=== PATIENT | male | born 2005 | race Caucasian/White ===

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

== ENCOUNTER 2024-12-23 13:02 | Outpatient (OUT) | payer OTHER, SELFPAY ==
--- OUTSIDE RECORDS SUMMARY | 2024-12-23 13:08 | XMS_ITS | Encounter Summary ---
Author Organization [facility] Address [address] [facility] [place] [address] Care Team Providers Care Stock Transfer Clerk Name Role Phone Kristal Calzada Unavailable [phone] Encounter Details Date Type Department Care Team (Late st Contact Info) Description 11/26/2022 Abstract [facility] [place] [facility] [address] [facility] [address] [place] [id number] Jayy Harrison MD [address] [facility] [address] [place] [address] Social History Tobacco Use Types Packs/Day Years Used Date Smoking Tobacco: Never Assessed Sex and Gender Information Value Date Recorded Sex Assigned at Not on file Legal Sex Male 6:50 PM EDT Gender Identity Not on file Sexual Orientation Not on file documented as of this encounter Plan of Treatment Upcoming Encounters Date Type Department Care Team (Late st Contact Info) Description 04/21/2025 10:00 AM EST Office Visit [facility] [place] [facility] [address] [place] [address] [place] [address] Kristal Calzada PA [address] [facility] [address] [place] [address] documented as of this encounter Visit Diagnoses Not on filedocumented in this encounter Care Teams Stock Transfer Clerk Relationship Specialty Start Date End Date Kristal Calzada PA [address] [facility] [address] [place] [address] PCP - Medical [place] [employer] 05/06/21 05/05/99 documented as of this encounter
--- OUTSIDE RECORDS SUMMARY | 2024-12-23 13:08 | XMS_ITS | Encounter Summary ---
Author Organization [facility] Address [address] [place] [address] Care Team Providers Care Setter Helper Name Role Phone Kristal Calzada PA Unavailable [phone] Encounter Details Date Type Department Care Team (Late st Contact Info) Description 08/20/2023 Abstract [facility] [place] [facility] [address] [place] [address] [place] [address] Unallocated, Noms Provider, [address] [place] [address] Social History Tobacco Use Types Packs/Day Years Used Date Smoking Tobacco: Never Smokeless Tobacco: Never Alcohol Use Standard Drinks/Week Comments Not Currently 0 (1 standard drink = 0.6 oz pure alcohol) Caffeine intake: drinks a soda/pop weekly Humiliation, Afraid, Rape, and Kick questionnair e Answer Date Recorded Within the last year, have y ou been afraid of your partner or ex-partner? No 04/01/2023 Within the last year, have y ou been humiliated or emotionally abused in other ways by your partner or ex-partner? No Within the last year, have y ou been kicked, hit, slapped, or otherwise physically hurt by your partner or ex-partner? No 04/01/2023 Within the last year, have y ou been raped or forced to have any kind of sexual activity by your partner or ex-partner? No 04/01/2023 Social Connection and Isolation Panel [NHANES] A nswer Date Recorded In a typical week, how many times do you talk on the phone with family, friends, or neighbors? Once a week 04/01/2023 How often do you get together with friends or re latives? Once a week 04/01/2023 How often do you attend mu-ism or confucianist serv ices? Never 04/01/2023 Do you belong to any clubs o r organizations such as mu-ism groups, unions, fraternal or athletic groups, or school groups? No 04/01/2023 How often do you attend meet ings of the clubs or organizations you belong to? Never 04/01/2023 Are you , , di vorced, , never , or living with a partner? Never 04/01/2023 AUDIT-C Answer Date Recorded Q1: How often do you have a drink containing alc ohol? 2-4 times a month 04/01/2023 Q2: How many drinks containi ng alcohol do you have on a typical day when you are drinking? 7 to 9 04/01/2023 Q3: How often do you have si x or more drinks on one occasion? Less than monthly 04/01/2023 Overall Financial Resource Strain (CARDIA) Answe r Date Recorded How hard is it for you to pa y for the very basics like food, housing, medical care, and heating? Not hard at all 04/01/2023 [facility] - Occupational Stress Questionnaire Answer Date Recorded Do you feel stress - tense, restless, nervous, or anxious, or unable to sleep at night because your mind is troubled all the time - these days? Rather much 04/01/2023 Exercise Vital Sign Answer Date Recorde d On average, how many days pe r week do you engage in moderate to strenuous exercise (like a brisk walk)? 3 days 04/01/2023 On average, how many minutes do you engage in exercise at this level? 60 min 04/01/2023 Hunger Vital Sign Answer Date Recorded Within the past 12 months, y ou worried that your food would run out before you got the money to buy more. Never true 04/01/20 23 Within the past 12 months, t he food you bought just didn't last and you didn't have money to get more. Never true 04/01/2023 PRAPARE - Transportation Answer Date Re corded In the past 12 months, has l ack of transportation kept you from medical appointments or from getting medications? No 03/07 In the past 12 months, has l ack of transportation kept you from meetings, work, or from getting things needed for daily living? No 04/01/2023 Housing Stability Vital Sign Answer Jony e Recorded In the last 12 months, was t here a time when you were not able to pay the mortgage or rent on time? No 04/01/2023 In the last 12 months, how many places have you lived? 1 04/01/2023 In the last 12 months, was t here a time when you did not have a steady place to sleep or slept in a [place] [facility] facility (including now)? No 04/01/2023 Sex and Gender Information Value Date Recorded Sex Assigned at Not on file Legal Sex Male 6:50 PM EDT Gender Identity Not on file Sexual Orientation Not on file documented as of this encounter Plan of Treatment Upcoming Encounters Date Type Department Care Team (Late st Contact Info) Description 04/21/2025 10:00 AM EST Office Visit [facility] [place] Butcher [address] [facility] [address] [place] [address] Kristal Calzada PA [address] [facility] [address] [place] [address] documented as of this encounter Visit Diagnoses Not on filedocumented in this encounter Care Teams Setter Helper Relationship Specialty Start Date End Date Kristal Calzada PA [address] [facility] 110 [place] [address] PCP - Medical [place] [employer] 05/06/21 05/05/99 documented as of this encounter
--- OUTSIDE RECORDS SUMMARY | 2024-12-23 13:08 | XMS_ITS | Clinical Summary ---
Author Organization [facility] Address [address] [place] [address] Care Team Providers Care Turning Lathe Tender Name Role Phone Kristal Calzada PA Unavailable [phone] Allergies Active Allergy Reactions Criticality Noted Date Comments Sulfamethoxazole-Tri methoprim Fever,Hives,Itching,Ra sh,Runny nose Low 04/02/2023 Other Reaction(s): Unknown Medications cloNIDine ER (Kapvay) 0.1 MG tablet sustained-release 12 hourIndications:At tention deficit hyperactivity disorder (ADHD), combined type TAKE 1 TABLET BY MOUTH IN THE MORNING AND 1 TABLET AT NOON. 180 tablet 2 5 Active Active Problems Problem Noted Date Diagnosed Date ADPKD (autosomal dominant polycystic kidney dise ase) 10/22/2023 Attention deficit hyperactiv ity disorder (ADHD), combined type 07/25/2023 Acne 04/02/2023 Class 1 obesity due to exces s calories without serious comorbidity with body mass index (BMI) of 34.0 to 34.9 in adult 04/02/2023 Epidermoid cyst 04/02/2023 Family history of polycystic kidney disease 03/07 Family history of sudden cardiac Postconcussive syndrome 04/02/2023 Primary insomnia 04/02/2023 Resolved Problems Problem Noted Date Diagnosed Date Resolved Date Class 2 severe obesity due t o excess calories with serious comorbidity and body mass index (BMI) of 35.0 to 35.9 in adult 07/22/2024 5 BMI 34.0-34.9,adult 10/22/2023 04/22/20 24 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 10/22/2023 10/26/2024 Allergic reaction to drug 08/13/2023 Polycystic kidney disease 04/02/2023 Abnormal ultrasound 04/02/2023 10/27/19 25 Muscle cramps 04/02/2023 10/26/2024 Rib pain on left side 04/02/20232023 Sinusitis 04/02/2023 05/08/2023 Vestibular dysfunction 04/02/202308/12 Well child check 04/02/2023 08/13/2023 Encounters Date Type Department Care Team Description 11/17/2024 [facility] [place] [facility] [address] [facility] [address] [place] [id number] Kristal Calzada PA Attention deficit hyperactivity disorder (ADHD), combined type 10/26/2024 10:00 AM EDT Office Visit [facility] [place] [facility] [address] [facility] [address] [place] [address] Kristal Calzada PA Wellness examination (Primary Dx); Class 1 obesity due to excess calories without serious comorbidity with body mass index (BMI) of 34.0 to 34.9 in adult; ADPKD (autosomal dominant polycystic kidney disease); Attention deficit hyperactivity disorder (ADHD), combined type ; Acne vulgaris; Epidermoid cyst; Family history of polycystic kidney disease; Family history of sudden cardiac ; Primary insomnia; Postconcussive syndrome; Elevated BP without diagnosis of hypertension 10/26/2024 Bamboo flowsheet [facility] [place] [facility] [address] [facility] [address] [place] [address] Kristal Calzada PA 10/26/2024 Travel 10/23/2024 Travel 10/08/2024 Clinisync Result Encounter [facility] External Department Unsolicited Provider, Generic External Data 09/29/2024 Refill [facility] [place] [facility] [address] [facility] [address] [place] [id number] Kristal Calzada, PA Attention deficit hyperactivity disorder (ADHD), combined type from Last 3 Months Immunizations Immunization Administration Dates Next Due DTP 05/24/2004 DTaP 03/10/2008,05/24/2004,2003 DTaP / Hep B / IPV 2003 DTaP, Unspecified 2003,2003 Hep A, ped/adol, 2 dose 05/31/2017,11/22/2016 Hep B, Adolescent or Pediatric 2003,2002 Hep B, adult 2003 HiB, unspecified 05/24/2004,2003, 4 Hib (PRP-T) 2003 IPV 03/10/2008 Influenza Whole 02/21/2005 Influenza, live, intranasal 02/18/2013,1 ,04/27/2011,03/10 Influenza, seasonal, injectable 03/05/2007,02/22 Influenza, seasonal, injecta ble, preservative free 01/29/2024,03/12/2014,02/22/2010 MMR 03/10/2008,02/23/2004 Meningococcal ACWY, unspecified 11/22/2015 Meningococcal MCV4O 11/28/2020 Meningococcal MCV4P 11/22/2015 Novel Pbamcfbin-[id number], nasal 04/08/2009 Pneumococcal Conjugate PCV 13 05/24/2004 Pneumococcal Conjugate PCV 7 2003,08/25/19 04 Pneumococcal, Unspecified 05/24/2004 Polio, Unspecified 03/10/2008, 4,2003,05/07 TD (adult), 2 Lf tetanus tox oid, preservative free, adsorbed 11/22/2015 Tdap 11/22/2015, 8,05/24/2004,08/24,2003,2003 Varicella 03/10/2008,02/23/2004 Family History Medical History Relation Name Comments Hyperlipidemia Father Heart disease Maternal Grandfather Heart disease Mother Kidney disease Mother Polycystic kidney disease Mother Hyperlipidemia Other 1 Hypertension Other 1 Kidney disease Other 1 Polycystic kidney disease Other 2 Cancer Paternal Grandfather Cancer Paternal Grandmother Relation Name Status Comments Father Alive Maternal Grandfather Maternal Grandmother Alive Mother Alive Other 1 Family hx Other 2 Alive Uncles Paternal Grandfather Paternal Grandmother Social History Tobacco Use Types Packs/Day Years Used Date Smoking Tobacco: Never Smokeless Tobacco: Never Tobacco Cessation:Counseling Given: Not Answered Alcohol Use Standard Drinks/Week Comments Yes 7 (1 standard drink = 0.6 oz pure alcohol) Caffeine intake: drinks a soda/pop weekly B1300 Health Literacy Answer Date Recor ded How often do you need to hav e someone help you when you read instructions, pamphlets, or other written material from your doctor or pharmacy? Never 10/23/2024 Humiliation, Afraid, Rape, and Kick questionnair e Answer Date Recorded Within the last year, have y ou been afraid of your partner or ex-partner? No 10/23/2024 Within the last year, have y ou been humiliated or emotionally abused in other ways by your partner or ex-partner? No Within the last year, have y ou been kicked, hit, slapped, or otherwise physically hurt by your partner or ex-partner? No 10/23/2024 Within the last year, have y ou been raped or forced to have any kind of sexual activity by your partner or ex-partner? No 10/23/2024 Social Connection and Isolat ion Panel [NHANES] Answer Date Recorded In a typical week, how many times do you talk on the phone with family, friends, or neighbors? More than three times a week 10/23/2024 How often do you get togethe r with friends or relatives? Once a week 10/23/2024 How often do you attend [facility] or oriental orthodox services? More than 4 times per year 10/23/2024 Do you belong to any clubs o r organizations such as zoroastrian groups, unions, fraternal or athletic groups, or school groups? No 10/23/2024 How often do you attend meet ings of the clubs or organizations you belong to? Never 10/23/2024 Are you , , di vorced, , never , or living with a partner? Never 10/23/2024 AUDIT-C Answer Date Recorded Q1: How often do you have a drink containing alc ohol? Monthly or less 10/23/2024 Q2: How many drinks containi ng alcohol do you have on a typical day when you are drinking? 7 to 9 10/23/2024 Q3: How often do you have si x or more drinks on one occasion? Less than monthly 10/23/2024 Overall Financial Resource Strain (CARDIA) Answe r Date Recorded How hard is it for you to pa y for the very basics like food, housing, medical care, and heating? Not very hard 10/23/2024 PHQ-2 Answer Date Recorded Patient Health Questionnaire-2 Score 0 07/22/2024 [facility] - Occupational Stress Questionnaire Answer Date Recorded Do you feel stress - tense, restless, nervous, or anxious, or unable to sleep at night because your mind is troubled all the time - these days? Not at all 10/23/2024 Exercise Vital Sign Answer Date Recorde d On average, how many days pe r week do you engage in moderate to strenuous exercise (like a brisk walk)? 4 days 10/23/2024 On average, how many minutes do you engage in exercise at this level? 90 min 10/23/2024 Hunger Vital Sign Answer Date Recorded Within the past 12 months, y ou worried that your food would run out before you got the money to buy more. Never true 10/24/19 Within the past 12 months, t he food you bought just didn't last and you didn't have money to get more. Never true 10/23/2024 PRAPARE - Transportation Answer Date Re corded In the past 12 months, has l ack of transportation kept you from medical appointments or from getting medications? No 10/05 In the past 12 months, has l ack of transportation kept you from meetings, work, or from getting things needed for daily living? No 10/23/2024 Housing Stability Vital Sign Answer Jony e [...] place to sleep or slept in a retirement (including now)? No 04/01/2023 Housing Stability Vital Sign Answer Jony e Recorded In the last 12 months, was t here a time when you were not able to pay the mortgage or rent on time? No 10/23/2024 In the past 12 months, how m any times have you moved where you were living? 0 10/23/2024 At [facility] time in the [facility] were you homeless or living in a retirement (including now)? No 10/23/2024 Sex and Gender Information Value Date Recorded Sex Assigned at Not on file Legal Sex Male 6:50 PM EDT Gender Identity Not on file Sexual Orientation Not on file Last Filed Vital Signs Vital Sign Reading Time Taken Comments Blood Pressure 136/88 10/26/2024 9:44 AM EDT Pulse 60 10/26/2024 9:44 AM EDT Temperature 37.4 C (99.4 F) 10/22/2023 10:03 AM EDT Respiratory Rate 16 07/22/2024 10:04 AM EDT Oxygen Saturation 98% 10/26/2024 9:44 AM EDT Inhaled Oxygen Concentration - - Weight 114 kg (252 lb) 10/26/2024 9:44 AM EDT Height 182.9 cm (6') 10/26/2024 9:44 AM EDT Body Mass Index 34.18 10/26/2024 9:44 AM EDT Plan of Treatment Upcoming Encounters Date Type Department Care Team (Late st Contact Info) Description 04/21/2025 10:00 AM EST Office Visit [facility] [place] [facility] [address] [facility] [address] [place] [address] Kristal Calzada PA [address] [facility] 110 [place] [address] Health Maintenance Due Date Last Done Comments Influenza Vaccine (#1) 2025 4, 03/12/2014, 02/18/2013, Additional history exists Procedures Procedure Name Priority Date/Time Associated Diagnosis Comments QUANTIFERON-TB GOLD PLUS Routine 10/08/2024 3:10 PM EDT MEASLES/MUMPS/RUBEL LA IMMUNITY Routine 10/08/2024 3:10 PM EDT VARICELLA-ZOSTER V AB, IGG Routine 10/08/2024 3:10 PM EDT HEPATITIS B SURF AB QUANT Routine 10/08/2024 3:10 PM EDT from Last 3 Months Results * VARICELLA-ZOSTER V AB, IGG (10/08/2024 3:10 PM EDT) Pathologist [facility] VARICELLA-ZOST ER V AB, IGG Non Reactive Non Reactive TB Comment: Please note reference interval change A Reactive result is considered evidence of immunity to VZV. Reactive indicates that VZV IgG was detected consistent with previous infection and/or vaccination. A Non Reactive result indicates that VZV IgG was not detected suggesting that immunity has not been acquired. Performed at: [facility] [id number] Sales Service Rep: Anibal Munoz PhD, Phone: [phone] 10/08/2024 3:10 PM EDT 10/08/2024 3:13 PM EDT Narrative [facility] - 10/09/2024 6:07 AM EDT Donna Melgoza NP LAB BLOOD ORDERABLES Final Re sult [facility] * QUANTIFERON-TB GOLD PLUS (10/08/2024 3:10 PM EDT) Pathologist [facility] QUANTIFERON INCUBATION . TBH Comment: Incubation performed. Reference Range: . QUANTIFERON-TB GOLD PLUS Negative Negative TB Comment: No response to M tuberculosis antigens detected. Infection with M tuberculosis is unlikely, but high risk individuals should be considered for additional testing (ATS/IDSA/CDC Clinical Practice Guidelines, 2017). The reference range is an Antigen minus Nil result of <0.35 IU/mL. Chemiluminescence immunoassay methodology Performed at: [facility] [id number] Sales Service Rep: Anibal Munoz PhD, Phone: [phone] QUANTIFERON CRITERIA Comment . TBH Comment: QuantiFERON-TB Gold Plus is a qualitative indirect test for M tuberculosis infection (including disease) and is intended for use in conjunction with risk assessment, radiography, and other medical and diagnostic evaluations. The QuantiFERON-TB Gold Plus result is determined by subtracting the Nil value from either TB antigen (Ag) value. The Mitogen tube serves as a control for the test. QUANTIFERON TB1 AG VALUE 0.04 . IU/mL TBH QUANTIFERON TB2 AG VALUE 0.04 . IU/mL TBH QUANTIFERON NIL VALUE 0.03 . IU/mL TBH QUANTIFERON MITOGEN VALUE >10.00 . IU/mL TB 10/08/2024 3:10 PM EDT 10/08/2024 3:13 PM EDT Narrative [facility] - 10/10/2024 7:07 AM EDT Donna Melgoza PRIMARY CARE NURSE PRACTITIONER LAB BLOOD ORDERABLES Final Re sult [facility] * (ABNORMAL) MEASLES/MUMPS/RUBELLA IMMUNITY (10/08/2024 3:10 PM EDT) [facility] RUBELLA ANTIBODIES, IGG 1.61 Immune >0.99 index TBH Comment: Non-immune <0.90 Equivocal 0.90 - 0.99 Immune >0.99 MEASLES ANTIBODIES, IGG <13.5(A) Immune >16.4 AU/mL TB Comment: Negative <13.5 Equivocal 13.5 - 16.4 Positive >16.4 Presence of antibodies to Rubeola is presumptive evidence of immunity except when acute infection is suspected. MUMPS ABS, IGG 87.0 Immune >10.9 AU/mL TB Comment: Negative <9.0 Equivocal 9.0 - 10.9 Positive >10.9 A positive result generally indicates past exposure to Mumps virus or previous vaccination. Performed at: [address] [id number] Sales Service Rep: Anibal Munoz PhD, Phone: [phone] 10/08/2024 3:10 PM EDT 10/08/2024 3:13 PM EDT Narrative [facility] - 10/09/2024 6:07 AM EDT us Donna Melgoza PRIMARY CARE NURSE PRACTITIONER LAB BLOOD ORDERABLES Final Re sult [facility] * HEPATITIS B SURF AB QUANT (10/08/2024 3:10 PM EDT) HEPATITIS B SURF AB QUANT 19.0 Immunity>10 mIU/mL TBH Comment: Status of Immunity Anti-HBs Level Inconsistent with Immunity 0.0 - 10.0 Consistent with Immunity >10.0 10/08/2024 3:10 PM EDT 10/08/2024 3:13 PM EDT [facility] - 10/09/2024 6:07 AM EDT Donna Melgoza PRIMARY CARE NURSE PRACTITIONER LAB BLOOD ORDERABLES Final Re sult Performing Organization Address City/[facility]/ZIP Co de Phone Number [facility] from Last 3 Months Insurance [employer] Care Teams Turning Lathe Tender Relationship Specialty Start Date End Date Kristal Calzada PA [address] [facility] [address] [place] [address] PCP - Medical [place] [employer] 05/06/21 05/05/99
--- OUTSIDE RECORDS SUMMARY | 2024-12-23 13:08 | XMS_ITS | Encounter Summary ---
Author Organization [facility] Address [address] [facility] [place] [address] Care Team Providers Care Social Welfare Research Worker Name Role Phone Kristal Calzada Unavailable [phone] Encounter Details Date Type Department Care Team (Late st Contact Info) Description 05/15/2023 Abstract [facility] [place] [facility] [address] [place] [address] [place] [address] Kristal Calzada PA [address] [place] [address] [place] [address] Social History Tobacco Use Types Packs/Day Years [...] week 04/01/2023 How often do you attend hoahaoism or nondenominational serv ices? Never 04/01/2023 Do you belong to any clubs o r organizations such as hoahaoism groups, unions, fraternal or athletic groups, or [...] and heating? Not hard at all 04/01/2023 [facility] [place] [facility] - Occupational Stress [...] place to sleep or slept in a fci (including now)? No 04/01/2023 Sex and Gender [...] Visit [facility] [place] Butcher [address] [facility] [address] [place] [address] Kristal Calzada PA [address] [facility] [address] [place] [address] documented as of this encounter Visit Diagnoses Not on filedocumented in this encounter Care Teams Social Welfare Research Worker Relationship Specialty Start Date End Date Kristal Calzada PA [address] [facility] [address] [place] [address] PCP - Medical [place] [employer] 05/06/21 05/05/99 documented as of this encounter
--- OUTSIDE RECORDS SUMMARY | 2024-12-23 13:08 | XMS_ITS | Encounter Summary ---
Author Organization [facility] Address [address] [facility] [place] [address] Care Team Providers Care Job Counselor Name Role Phone Kristal Calzada PA Unavailable [phone] Encounter Details Date Type Department Care Team (Late st Contact Info) Description 08/20/2023 Abstract [facility] [place] [facility] [address] [place] [address] [place] [address] Unallocated, Noms Provider, [address] [place] [address] Social History Tobacco Use Types Packs/Day Years [...] week 04/01/2023 How often do you attend presybeterian or gnosticist serv ices? Never 04/01/2023 Do you belong to any clubs o r organizations such as presybeterian groups, unions, fraternal or athletic groups, or [...] and heating? Not hard at all 04/01/2023 [facility] - Occupational Stress [...] place to sleep or slept in a halfway (including now)? No 04/01/2023 Sex and Gender [...] Visit [facility] [place] Butcher [address] [facility] [address] [place] [address] Kristal Calzada PA [address] [facility] [address] [place] [address] documented as of this encounter Visit Diagnoses Not on filedocumented in this encounter Care Teams Job Counselor Relationship Specialty Start Date End Date Kristal Calzada PA [address] [facility] [address] [place] [address] PCP - Medical [place] [employer] 05/06/21 05/05/99 documented as of this encounter
--- OUTSIDE RECORDS SUMMARY | 2024-12-23 13:08 | XMS_ITS | Encounter Summary ---
Author Organization [facility] Address [address] [place] [address] Care Team Providers Care Tamale Maker Name Role Phone Kristal Calzada PA Unavailable [phone] Encounter Details Date Type Department Care Team (Late st Contact Info) Description 12/11/2023 Abstract [facility] [address] [place] [address] [place] [address] Unallocated, [facility] Provider, [address] [place] [address] Social History Tobacco Use Types Packs/Day Years [...] week 04/01/2023 How often do you attend orthodox or temple serv ices? Never 04/01/2023 Do you belong to any clubs o r organizations such as orthodox groups, unions, fraternal or athletic groups, or [...] and heating? Not hard at all 04/01/2023 [facility] - Occupational [...] Visit [facility] [place] [facility] [address] [facility] [address] [place] [address] Kristal Calzada PA [address] [facility] [address] [place] [address] documented as of this encounter Visit Diagnoses Not on filedocumented in this encounter Care Teams Tamale Maker Relationship Specialty Start Date End Date Kristal Calzada PA [address] [facility] [address] [place] [address] PCP - Medical [place] [employer] 05/06/21 05/05/99 documented as of this encounter
[2024-12-23 13:44] LABS: Protein Creatinine Ratio Urine 0.05; Total Protein Urine Random 16.0 mg/dL (<=11.9)
[2024-12-23 13:48] LABS: Albumin Level 4.2 g/dL (3.4-5.0); Anion Gap 9.7; Blood Urea Nitrogen 20.0 mg/dL (7.0-18.0); Calcium 9.2 mg/dL (8.5-10.1); Carbon Dioxide 30.3 mmol/L (21.0-32.0); Chloride 102 mmol/L (98-107); Estimated GFR (African America >60 (>=60 mL/min/1.73m^2); Estimated GFR (Non-African Ame >60 (>=60 mL/min/1.73m^2); Glucose 84 mg/dL (74-106); Potassium 4.0 mmol/L (3.5-5.1); Sodium 138 mmol/L (136-145)
[2024-12-23 14:27] LABS: Hematocrit 48.5 % (42.0-54.0); Hemoglobin 17.3 g/dL (14.0-18.0); Mean Corpuscular HGB Conc 35.7 g/dL (29.9-35.2); Mean Corpuscular Hemoglobin 31.6 pg (25.9-34.0); Mean Corpuscular Volume 88.5 fL (80.0-94.0); Platelet Count 293 10^3/uL (150-450); Red Blood Count 5.48 10^6/uL (4.70-6.10); White Blood Count 9.4 10^3/uL (4.0-11.0)
[2024-12-23 14:32] LABS: Glucose Urine UA NEGATIVE (NEGATIVE)
[2024-12-23 14:42] LABS: Cast Seen? NONE SEEN #/LPF (NONE SEEN); Crystals Seen? None Seen #/HPF (None Seen)
== END 2024-12-23 13:03 | disposition home or self-care (01) ==
LOC: LAB 13:05
PROVIDERS: PCP Family Medicine; Visit Provider Internal Medicine
DX: F90.9 Attention-deficit hyperactivity disorder, unspecified type (principal); Q61.2 Polycystic kidney, adult type
CPT/HCPCS: 36415; 80069; 81001; 82570; 84156; 85027

== ENCOUNTER 2025-03-16 11:46 | Outpatient (OUT) | payer OTHER, SELFPAY ==
--- OUTSIDE RECORDS SUMMARY | 2025-03-16 11:48 | XMS_ITS | Clinical Summary ---
Author Organization [facility] Address [address] [place] [address] Care Team Providers Care Salesforce Administrator Name Role Phone Kristal Calzada PA Unavailable [phone] Allergies Active AllergyReactionsCriticalityNoted DateComments Sulfamethoxazole-TrimethoprimFever,Hives,Itching,Rash,Runny igvrKqh6504/02/2023 Other Reaction(s): Unknown Medications MedicationSigDispense QuantityRefillsLast FilledStart DateEnd DateStatus cloNIDine ER (Kapvay) 0.1 MG tablet sustained-release 12 hour Indications:Attention deficit hyperactivity disorder (ADHD), combined typeTAKE 1 TABLET BY MOUTH IN THE MORNING AND 1 TABLET AT NOON. 180 tablet 5Active Active Problems ProblemNoted DateDiagnosed DateADPKD (autosomal dominant polycystic kidney disease)4Attention deficit hyperactivity disorder (ADHD), combined type 1499Rmuj48/28/2023Class 1 obesity due to excess calories without serious comorbidity with body mass index (BMI) of 34.0 to 34.9 in adult04/02/2023 Epidermoid cyst04/02/2023Family history of polycystic kidney jnsktht5304/02/2023 Family history of sudden cardiac death3Postconcussive syndrome 3Primary ywdrbdqd21/28/2023 Resolved Problems ProblemNoted DateDiagnosed DateResolved DateClass 2 severe obesity due to excess calories with serious comorbidity and body mass index (BMI) of35.0 to 35.9 in adult07/22//5BMI 34.0-34.9,adult/Neoplasm of unspecified behavior of other specified sites/llergic reaction to drugolycystic kidney vxhfgfe6004/02/2023 10/26/2024bnormal obwyioeapu38/28/202306/Muscle urqrls0906/02/2022 10/26/2024Rib pain on left side/01/20244938Bgovjspau62/28/202301/07/2023 Vestibular gazfcvqamsm40/28/202304/01/2024Well child check/01/2024 Encounters DateTypeDepartmentCare SkqzPdpjljjxjow02/11/2025bstract [facility] [address] [place] [address] Unallocated, Noms ProviderMD 03/03/2025bstract [facility] [address] [facility] [address] [place] [phone] Kristal Calzada PA 01/05/2025bstract [facility] [address] [facility] [address] [place] [address] Unallocated, Noms ProviderMD 12/23/2024linisync Result Encounter [facility] External Department Unsolicited Provider, Generic External Data from Last 3 Months Immunizations ImmunizationAdministration DatesNext AvzPGO9905/24/2004DTaP105/10/2007,05/24/2004, 2003DTaP / Hep B / IPV2003DTaP, Kvzsywzgqms77/18/2004,2003Hep A, ped/adol, 2 dose05/31/2017,11/22/2016Hep B, Adolescent or Vhcvmtuot03/02/2004 ,2003Hep B, adult2003HiB, yahxnmkgwui62/19/2005,2003, 2003Hib (PRP-T)2003IPV105/10/2007Influenza Whole02/21/2005Influenza, live, sstbqztyoi34/16/2013,03/04/2012,04/27/2011,03/10/2008Influenza, seasonal, fejpbdyxkd82/31/2007,02/23/2004Influenza, seasonal, injectable, preservative free01/29/2024,03/12/2014,02/22/2010MMR105/10/2007,02/23/2004Meningococcal ACWY, bgykmehbyzp75/19/2016Meningococcal TFX9E0111/28/2020Meningococcal UDG2A7611/22/2015 Novel Xtaxppviz-F1S7-21, nasal04/08/2009Pneumococcal Conjugate PCV 13005/24/2004 Pneumococcal Conjugate PCV 7011/24/2003,2003Pneumococcal, Unspecified 05/24/2004Polio, Ystmriauntn14/05/2008,2003,2003,2003TD (adult), 2 Lf tetanus toxoid, preservative free, sgegbwkg13/19/2016Tdap 11/22/2015,03/10/2008,05/24/2004,2003,2003,2003Varicella 03/10/2008,02/23/2004 Family History Medical HistoryRelationNameCommentsHyperlipidemiaFatherHeart diseaseMaternal GrandfatherHeart diseaseMotherKidney diseaseMotherPolycystic kidney disease MotherHyperlipidemiaOther 1HypertensionOther 1Kidney diseaseOther 1Polycystic kidney diseaseOther 2CancerPaternal GrandfatherCancerPaternal Grandmother RelationNameStatusCommentsFatherAliveMaternal GrandfatherDeceasedMaternal GrandmotherAliveMotherAliveOther 1Family hxOther 2AliveUnclesPaternal GrandfatherDeceasedPaternal GrandmotherDeceased Social History Tobacco UseTypesPacks/DayYears UsedDateSmoking Tobacco: NeverSmokeless Tobacco: Never Tobacco Cessation:Counseling Given: Not Answered Alcohol UseStandard Drinks/WeekCommentsYes7 (1 standard drink = 0.6 oz pure alcohol)Caffeine intake: drinks a soda/pop njsihiB3671 Health LiteracyAnswerDate RecordedHow often do you need to have someone help you when you read instructions, pamphlets, or other written material from your doctor or pharmacy? Never10/23/2024Humiliation, Afraid, Rape, and Kick questionnaireAnswerDate RecordedWithin the last year, have you been afraid of your partner or ex-partner?No10/23/2024Within the last year, have you been humiliated or emotionally abused in other ways by your partner or ex-partner?No10/23/2024 Within the last year, have you been kicked, hit, slapped, or otherwise physically hurt by your partner or ex-partner?No10/23/2024Within the last year, have you been raped or forced to have any kind of sexual activity by your part ner or ex-partner?No10/23/2024Social Connection and Isolation PanelAnswerDate RecordedIn a typical week, how many times do you talk on the phone with family, friends, or neighbors?More than three times a week10/23/2024How often do you get together with friends or relatives?Once a week10/23/2024How often do you attend cheondoism or yazdanism services?More than 4 times per year10/23/2024Do you belong to any clubs or organizations such as cheondoism groups, unions, fraternal or athletic groups, or school groups?No10/23/2024How often do you attend meetings of the clubs or organizations you belong to?Never10/23/2024re you , , , , never , or living with a partner?Never adhddgf4110/23/2024UDIT-CAnswerDate RecordedQ1: How often do you have a drink containing alcohol?Monthly or less10/23/2024Q2: How many drinks containing alcohol do you have on a typical day when you are drinking?7 to Q3: How often do you have six or more drinks on one occasion?Less than monthly 10/23/2024Overall Financial Resource Strain (CARDIA)AnswerDate RecordedHow hard is it for you to pay for the very basics like food, housing, medical care, and heating?Not very hard10/23/2024PHQ-2AnswerDate RecordedPatient Health Questionnaire-2 Kczhk614Finmountain view hospital [place] of Occupational Health - Occupational Stress QuestionnaireAnswerDate RecordedDo you feel stress - tense, restless, nervous, or anxious, or unable to sleep at night because yourmind is troubled all the time - these days?Not at all10/23/2024Exercise Vital SignAnswer Date RecordedOn average, how many days per week do you engage in moderate to strenuous exercise (like a brisk walk)?4 days10/23/2024On average, how many minutes do you engage in exercise at this level?90 min10/23/2024Hunger Vital SignAnswerDate RecordedWithin the past 12 months, you worried that your food would run out before you got the money to buymore.Never true10/23/2024Within the past 12 months, the food you bought just didn't last and you didn't have money to get more.Never true10/23/2024PRAPARE - TransportationAnswerDate RecordedIn the past 12 months, has lack of transportation kept you from medical appointments or from getting medications?No10/23/2024In the past 12 months, has lack of transportation kept you from meetings, work, or from getting things needed for daily living?No10/23/2024Housing Stability Vital SignAnswerDate RecordedIn the last 12 months, was there a time when you were not able to pay the mortgage or rent on time?No04/01/2023In the last 12 months, how many places have you lived?In the last 12 months, was there a time when you did not have a steady place to sleep or slept in [place] (including now)?No 04/01/2023Housing Stability Vital SignAnswerDate RecordedIn the last 12 months, was there a time when you were not able to pay the mortgage or rent on time?No 10/23/2024In the past 12 months, how many times have you moved where you were living?t any time in the past 12 months, were you homeless or living in a halfway (including now)?No10/23/2024Sex and Gender InformationValueDate RecordedSex Assigned at BirthNot on fileLegal YjjBtnw1907/18/2022 6:50 PM EDT Gender IdentityNot on fileSexual OrientationNot on file Last Filed Vital Signs Vital SignReadingTime TakenCommentsBlood Llnbnfze500/8806 9:44 AM EDT Roics9363/23/2025 9:44 AM KIVTksmhdekawq17.4 ??C (99.4 ??F)10/22/2023 10:03 AM EDTRespiratory Okat159207/22/2024 10:04 AM EDTOxygen Zcwmwvwkzo71%10/26/2024 9:44 AM EDTInhaled Oxygen Concentration--Byyrno387 kg (252 lb)10/26/2024 9:44 AM EDT Ubnxlf803.9 cm (6')10/26/2024 9:44 AM EDTBody Mass Index34.18010/26/2024 9:44 AM EDT Plan of Treatment DateTypeDepartmentCare Team (Latest Contact Info)Euhjubmlqqg83/17/2025 10:00 AM ESTOffice Visit [facility] [address] [facility] [address] [place] [address] Kristal Calzada PA [address] [facility] [address] [place] [address] Health MaintenanceDue DateLast DoneCommentsCOVID-19 Vaccine ( season) 2025Pneumococcal Vaccine: Pediatrics (0 to 5 Years) and At-Risk Patients (6 to 64 Years)Aged Out05/24/2004, 05/24/2004, 2003, Additional history existsNo longer eligible based on patient's age to complete this topicInfluenza XykoiodWloanvwii55/25/2025, 01/29/2024, 03/12/2014, Additional history exists Procedures Procedure NamePriorityDate/TimeAssociated DiagnosisCommentsHMHP CBC WITH PLATELET NO ETCEBKGIDURWQtzngzi78/20/2025 1:20 PM EDT ALL RENAL FUNCTION HCONGKppgggs71/20/2025 1:20 PM EDT HMHP URINALYSIS, WITH MUTNFHZOZUKWfkbhtt67/20/2025 1:08 PM EDT TBH URINE T PROTEIN CREAT EIIXQOkymtih27/20/2025 1:08 PM EDT from Last 3 Months Results * (ABNORMAL) [facility] CBC WITH PLATELET NO DIFFERENTIAL (12/23/2024 1:20 PM EDT) ComponentValueRef RangeTest MethodAnalysis TimePerformed AtPathologist SignatureTBH WBC9.44.0 - 11.0 10 3/uLTBHTBH RBC5.484.70 - 6.10 10 6/uLTBHTBH HGB17.314.0 - 18.0 g/dLTBHTBH HCT48.542.0 - 54.0 %TBHTBH MCV88.580.0 - 94.0 fL TBHTBH MCH31.625.9 - 34.0 pgTBHTBH MCHC35.7(H)29.9 - 35.2 g/dLTBHTBH RDW11.8 11.0 - 15.0 %TBHTBH CWY897180 - 450 10 3/uLTBHTBH MPV9.3(L)9.5 - 13.5 fLTBH Specimen (Source)Anatomical Location / LateralityCollection Method / Volume Collection TimeReceived Time12/23/2024 1:20 PM EDT12/23/2024 1:22 PM EDT Narrative CLINISYNC - 12/23/2024 2:29 PM EDT Authorizing ProviderResult TypeResult StatusGeneric External Data Provider CLINISYNCFinal ResultPerforming OrganizationAddressCity/State/ZIP CodePhone Number CLINISYNC [facility] * (ABNORMAL) ALL RENAL FUNCTION PANEL (12/23/2024 1:20 PM EDT)ComponentValueRef RangeTest MethodAnalysis TimePerformed AtPathologist MliigxlpuXTIKWS123362 - 145 mmol/LTBHPOTASSIUM4.03.5 - 5.1 mmol/OMHHHSJVSXGN65353 - 107 mmol/LTBH CARBON RYJBKTO13.321.0 - 32.0 mmol/LTBHANION GAP9.4BNOORZBUVG1061 - 106 mg/dL TBHBLOOD UREA XUPAMFJC89.0(H)7.0 - 18.0 mg/dLTBHCREATININE1.250.70 - 1.30 mg/dLTBHTBH EGFR-AF MONTSERRATIAN>60>=60 mL/min/1.73m 2TBHTBH EGFR-NON AF MONTSERRATIAN >60>=60 mL/min/1.73m 2TBHBUN CREATININE RATIO16.8ZEJJUQEIMM9.28.5 - 10.1 mg/dL TBHPHOSPHORUS3.82.6 - 4.7 mg/dLTBHALBUMIN LEVEL4.23.4 - 5.0 g/dLTBHSpecimen (Source)Anatomical Location / LateralityCollection Method / VolumeCollection TimeReceived Time12/23/2024 1:20 PM EDT12/23/2024 1:22 PM EDT Narrative CLINISYKS - 12/23/2024 2:01 PM EDT Authorizing ProviderResult TypeResult StatusGeneric External Data Provider CLINISYNCFinal ResultPerforming OrganizationAddressCity/State/ZIP CodePhone Number RADHA [facility] * (ABNORMAL) TBH URINE T PROTEIN CREAT RATIO (12/23/2024 1:08 PM EDT)Component ValueRef RangeTest MethodAnalysis TimePerformed AtPathologist SignatureTOTAL PROTEIN URINE QXAQNC26.0(H)<=11.9 mg/dLTBHCREATININE URINE AQTSCH593.37(H) 20.00 - 300.00 mg/dLTBHPROTEIN CREATININE RATIO URINE0.05TBHSpecimen (Source) Anatomical Location / LateralityCollection Method / VolumeCollection Time Received Time12/23/2024 1:08 PM EDT12/23/2024 1:22 PM EDT Narrative CLINISYNC - 12/23/2024 2:01 PM EDT Authorizing ProviderResult TypeResult StatusGeneric External Data Provider CLINISYNCFinal ResultPerforming OrganizationAddressty/State/ZIP CodePhone Number RADHA JARQUIN * (ABNORMAL) HMHP URINALYSIS, WITH MICROSCOPIC (12/23/2024 1:08 PM EDT)Component ValueRef RangeTest MethodAnalysis TimePerformed AtPathologist SignatureCOLOR URINEYELLOWYELLOWTBHCLARITY URINECLEARCLEARTBHSPECIFIC GRAVITY URINE>=1.030(A) 1.005 - 1.025TBHPH URINE6.05.0 - 9.0TBHPROTEIN URINENEGATIVENEG/TRACE mg/dLTBH GLUCOSE URINE UANEGATIVENEGATIVE mg/dLTBHBILIRUBIN URINENEGATIVENEGATIVETBH KETONES URINENEGATIVENEGATIVE mg/dLTBHBLOOD URINENEGATIVENEGATIVETBHNITRITE URINENEGATIVENEGATIVETBHUROBILINOGEN URINE0.20.2 - 1.0 EU/dLTBHLEUKOCYTE ESTERASE URINENEGATIVENEGATIVETBHTBH WBC0-2(A)NONE SEEN #/HPFTBHTBH RBCNONE SEEN0 - 2 #/HPFTBHBACTERIA URINETRACE(A)NONE SEEN #/HPFTBHMUCUS URINESMALL(A) NONE SEENTBHSQUAMOUS EPITHELIAL CELL URINEFEW(A)NONE/RARE #/LPFTBHCRYSTALS SEEN?None SeenNone Seen #/HPFTBHCAST SEEN?NONE SEENNONE SEEN #/LPFTBHSpecimen (Source)Anatomical Location / LateralityCollection Method / VolumeCollection TimeReceived Time12/23/2024 1:08 PM EDT12/23/2024 1:22 PM EDT Narrative CLINISYNC - 12/23/2024 2:42 PM EDT Authorizing ProviderResult TypeResult StatusGeneric External Data Provider CLINISYNCFinal ResultPerforming OrganizationAddressCity/State/ZIP CodePhone Number CLINISYNC TBH from Last 3 Months Insurance Care Teams Team MemberRelationshipSpecialtyStart DateEnd Date Hemmer, Kristal M, PA [address] [phone] PCP - Medical [place] [employer]05/06/2211
--- OUTSIDE RECORDS SUMMARY | 2025-03-16 11:48 | XMS_ITS | Encounter Summary ---
Author Organization [facility] Address [address] [facility] [place] [address] Care Team Providers Care Technology Applications Teacher Name Role Phone Kristal Calzada Unavailable [phone] Encounter Details DateTypeDepartmentCare Team (Latest Contact Info)Cgciohpdgtb79/29/2025bstract [facility] [facility] [address] [address] [place] [address] Kristal Calzada PA [address] [place] [address] [place] [address] Social History Tobacco UseTypesPacks/DayYears UsedDateSmoking Tobacco: NeverSmokeless Tobacco: NeverAlcohol UseStandard Drinks/WeekCommentsYes7 (1 standard drink = 0.6 oz pure alcohol)Caffeine intake: drinks a soda/pop sbycphL7157 Health LiteracyAnswerDate RecordedHow often do you need [...] relatives?Once a week10/23/2024How often do you attend evangelical or advent services?More than 4 times per year10/23/2024Do you belong to any clubs or organizations such as evangelical groups, unions, fraBespoke Innovations or athletic groups, or school groups?No10/23/2024How often do you attend meetings of the clubs or organizations you belong to?Never10/23/2024re you , , , , never , or living with a partner?Never ilfqzof7810/23/2024UDIT-CAnswerDate RecordedQ1: How often do you have a [...] and heating?Not very hard10/23/2024PHQ-2AnswerDate RecordedPatient Health Questionnaire-2 Rjaxj428Fin[facility] [place] of Occupational Health - Occupational Stress QuestionnaireAnswerDate [...] steady place to sleep or slept in [place] (including now)?No 04/01/2023Housing Stability Vital SignAnswerDate RecordedIn the last 12 months, was there a time when you were not able to pay the mortgage or rent on time?No 10/23/2024In the past 12 months, how many times have you moved where you were living?t any time in the past 12 months, were you homeless or living in a fdc (including now)?No10/23/2024Sex and Gender InformationValueDate RecordedSex Assigned at BirthNot on fileLegal CjmWwxa6707/18/2022 6:50 PM EDT Gender IdentityNot on fileSexual OrientationNot on filedocumented as of this encounter Plan of Treatment DateTypeDepartmentCare Team (Latest Contact Info)Sihsxwywlei77/17/2025 10:00 AM ESTOffice Visit [facility] [place] [facility] [address] [place] [address] Kristal Calzada PA [address] [place] [address] documented as of this encounter Visit Diagnoses Not on filedocumented in this encounter Care Teams Team MemberRelationshipSpecialtyStart DateEnd Date Kristal Calzada PA [address] [place] [address] PCP - Medical [place] [employer]05/06/2211documented as of this encounter
--- OUTSIDE RECORDS SUMMARY | 2025-03-16 11:48 | XMS_ITS | Encounter Summary ---
Author Organization [facility] Address [address] [place] [address] Care Team Providers Care Learning Strategist Name Role Phone Kristal Calzada PA Unavailable [phone] Encounter Details DateTypeDepartmentCare Team (Latest Contact Info)Iobvqqbhjum39/11/2025bstract [facility] [address] [place] [phone] Unallocated, [facility]oms Provider, [address] [place] [address] Social History Tobacco UseTypesPacks/DayYears UsedDateSmoking Tobacco: NeverSmokeless Tobacco: NeverAlcohol UseStandard Drinks/WeekCommentsYes7 (1 standard drink = 0.6 oz pure alcohol)Caffeine intake: drinks a soda/pop rgcaylA6711 Health LiteracyAnswerDate RecordedHow often do you need [...] relatives?Once a week10/23/2024How often do you attend buddhist or latter day services?More than 4 times per year10/23/2024Do you belong to any clubs or organizations such as buddhist groups, unions, fraMasher or athletic groups, or school groups?No10/23/2024How often do you attend meetings of the clubs or organizations you belong to?Never10/23/2024re you , , , , never , or living with a partner?Never vcixzsw7610/23/2024UDIT-CAnswerDate RecordedQ1: How often do you have a [...] and heating?Not very hard10/23/2024PHQ-2AnswerDate RecordedPatient Health Questionnaire-2 Jztze283Finspanish fork hospital [place] of Occupational Health - Occupational Stress QuestionnaireAnswerDate [...] steady place to sleep or slept in [place] (including now)?No 04/01/2023Housing Stability Vital SignAnswerDate RecordedIn the last 12 months, was there a time when you were not able to pay the mortgage or rent on time?No 10/23/2024In the past 12 months, how many times have you moved where you were living?t any time in the past 12 months, were you homeless or living in a longterm (including now)?No10/23/2024Sex and Gender InformationValueDate RecordedSex Assigned at BirthNot on fileLegal GdjSxie3907/18/2022 6:50 PM EDT Gender IdentityNot on fileSexual OrientationNot on filedocumented as of this encounter Plan of Treatment DateTypeDepartmentCare Team (Latest Contact Info)Ezcfigxyfon46/17/2025 10:00 AM ESTOffice Visit [facility] [place] [facility] [address] [place] [phone] Kristal Calzada PA [address] [place] [address] documented as of this encounter Visit Diagnoses Not on filedocumented in this encounter Care Teams Team MemberRelationshipSpecialtyStart DateEnd Date Kristal Calzada PA [address] [facility] [address] [place] [address] PCP - Medical [place] [employer]05/06/2211documented as of this encounter
[2025-03-16 12:24] LABS: Alanine Aminotransferase 48 U/L (16-63); Albumin Globulin Ratio 1.2; Albumin Level 3.9 g/dL (3.4-5.0); Alkaline Phosphatase 85 U/L (46-116); Anion Gap 13.7; Aspartate Amino Transferase 23 U/L (15-37); Blood Urea Nitrogen 17.0 mg/dL (7.0-18.0); Calcium 9.0 mg/dL (8.5-10.1); Carbon Dioxide 24.9 mmol/L (21.0-32.0); Chloride 104 mmol/L (98-107); Estimated GFR (African America >60 (>=60 mL/min/1.73m^2); Estimated GFR (Non-African Ame >60 (>=60 mL/min/1.73m^2); Globulin 3.3 g/dL; Glucose 98 mg/dL (74-106); Potassium 4.6 mmol/L (3.5-5.1); Sodium 138 mmol/L (136-145); Total Protein 7.2 g/dL (6.4-8.2)
== END 2025-03-16 11:47 | disposition home or self-care (01) ==
LOC: LAB 11:46
PROVIDERS: PCP Family Medicine; Visit Provider Internal Medicine
DX: Q61.2 Polycystic kidney, adult type (principal)
CPT/HCPCS: 36415; 80053

== ENCOUNTER 2025-04-08 12:12 | Outpatient (OUT) | payer OTHER, SELFPAY ==
--- OUTSIDE RECORDS SUMMARY | 2025-04-08 12:16 | XMS_ITS | Clinical Summary ---
Author Organization [facility] Address [address] [place] [address] Care Team Providers Care Airport Duty Manager Name Role Phone Kristal Calzada PA Unavailable [phone] Allergies Active AllergyReactionsCriticalityNoted DateComments Sulfamethoxazole-TrimethoprimFever,Hives,Itching,Rash,Runny cramBbu3804/02/2023 Other Reaction(s): Unknown Medications MedicationSigDispense QuantityRefillsLast FilledStart DateEnd DateStatus cloNIDine ER (Kapvay) 0.1 MG tablet sustained-release 12 hour Indications:Attention deficit hyperactivity disorder (ADHD), combined typeTAKE 1 TABLET BY MOUTH IN THE MORNING AND 1 TABLET AT NOON. 180 tablet 5Active Active Problems ProblemNoted DateDiagnosed DateADPKD (autosomal dominant polycystic kidney disease)4Attention deficit hyperactivity disorder (ADHD), combined type 8926Xpsg14/28/2023Class 1 obesity due to excess calories without serious comorbidity with body mass index (BMI) of 34.0 to 34.9 in adult04/02/2023 Epidermoid cyst04/02/2023Family history of polycystic kidney qsgmpjl9204/02/2023 Family history of sudden cardiac death3Postconcussive syndrome 3Primary ydoszvro03/28/2023 Resolved Problems ProblemNoted DateDiagnosed DateResolved DateClass 2 severe obesity due to excess calories with serious comorbidity and body mass index (BMI) of35.0 to 35.9 in adult07/22//5BMI 34.0-34.9,adult06Neoplasm of unspecified behavior of other specified sites/llergic reaction to drugolycystic kidney uxthfwy9204/02/2023 5Abnormal kgtustngfc12Muscle vzvjwr3706/02/2022 10/26/2024Rib pain on left side/01/20241340Hehmzolgz26/28/202301/07/2023 Vestibular ybvlmdyuldu38Well child check Encounters DateTypeDepartmentCare EhnxAjxttqbqmgf77/11/2025linisync Result Encounter [facility] Unsolicited Provider, Kal External Data 03/16/2025bstract [facility] [address] [place] [phone] Unallocated, [facility] MD Naty 03/03/2025bstract [facility] [address] [facility] [address] [place] [phone] Kristal Calzada PA from Last 3 Months Immunizations ImmunizationAdministration DatesNext LmbZDX0505/24/2004DTaP105/10/2007,05/24/2004, 2003DTaP / Hep B / IPV2003DTaP, Kddgrvrzmsq47/18/2004,2003Hep A, ped/adol, 2 dose05/31/2017,11/22/2016Hep B, Adolescent or Ojzmxdumz42/02/2004 ,2003Hep B, adult2003HiB, /19/2005,2003, 2003Hib (PRP-T)2003IPV105/10/2007Influenza Whole02/21/2005Influenza, live, sinnhggymc66/16/2013,03/04/2012,04/27/2011,03/10/2008Influenza, seasonal, usqknurame89/31/2007,02/23/2004Influenza, seasonal, injectable, preservative free09/,03/12/2014,02/22/2010MMR105/10/2007,02/23/2004Meningococcal ACWY, eefovojghmi76/19/2016Meningococcal XUG4S4411/28/2020Meningococcal AOU9Q9511/22/2015 Novel Ughimvmjj-X5V7-02, nasal04/08/2009Pneumococcal Conjugate PCV 13005/24/2004 Pneumococcal Conjugate PCV 7011/24/2003,2003Pneumococcal, Unspecified 05/24/2004Polio, Asxlxwyxpkq71/05/2008,2003,2003,2003TD (adult), 2 Lf tetanus toxoid, preservative free, piosoxfz08/19/2016Tdap 11/22/2015,03/10/2008,05/24/2004,2003,2003,2003Varicella 03/10/2008,02/23/2004 Family History Medical HistoryRelationNameCommentsHyperlipidemiaFatherHeart diseaseMaternal GrandfatherHeart diseaseMotherKidney diseaseMotherPolycystic kidney disease MotherHyperlipidemiaOther 1HypertensionOther 1Kidney diseaseOther 1Polycystic kidney diseaseOther 2CancerPaternal GrandfatherCancerPaternal Grandmother RelationNameStatusCommentsFatherAliveMaternal GrandfatherDeceasedMaternal GrandmotherAliveMotherAliveOther 1Family hxOther 2AliveUnclesPaternal GrandfatherDeceasedPaternal GrandmotherDeceased Social History Tobacco UseTypesPacks/DayYears UsedDateSmoking Tobacco: NeverSmokeless Tobacco: Never Tobacco Cessation:Counseling Given: Not Answered Alcohol UseStandard Drinks/WeekCommentsYes7 (1 standard drink = 0.6 oz pure alcohol)Caffeine intake: drinks a soda/pop rdvfslN0032 Health LiteracyAnswerDate RecordedHow often do you need [...] relatives?Once a week10/23/2024How often do you attend episcopalian or hindu services?More than 4 times per year10/23/2024Do you belong to any clubs or organizations such as episcopalian groups, unions, fraternal or athletic groups, or school groups?No10/23/2024How often do you attend meetings of the clubs or organizations you belong to?Never10/23/2024re you , , , , never , or living with a partner?Never xklrccg3810/23/2024UDIT-CAnswerDate RecordedQ1: How often do you have a [...] and heating?Not very hard10/23/2024PHQ-2AnswerDate RecordedPatient Health Questionnaire-2 Hkvbu416[facility] Effort of Occupational Health - Occupational Stress QuestionnaireAnswerDate [...] steady place to sleep or [facility] ([facility])?No 04/01/2023Housing Stability Vital SignAnswerDate RecordedIn the last 12 months, was there a time when you were not able to pay the mortgage or rent on time?No 10/23/2024In the past 12 months, how many times have you moved where you were living?t any time in the past 12 months, were you homeless or living in a residential (including now)?No10/23/2024Sex and Gender InformationValueDate RecordedSex Assigned at BirthNot on fileLegal YurDbys2207/18/2022 6:50 PM EDT Gender IdentityNot on fileSexual OrientationNot on file Last Filed Vital Signs Vital SignReadingTime TakenCommentsBlood Zlvyrxdm533/8810/26/2024 9:44 AM EDT Xzzsp6251/23/2025 9:44 AM GZUIkpstfhiokb17.4 ??C (99.4 ??F)10/22/2023 10:03 AM EDTRespiratory Dnpc484307/22/2024 10:04 AM EDTOxygen Idyuformub11%10/26/2024 9:44 AM EDTInhaled Oxygen Concentration--Dpdmyk644 kg (252 lb)10/26/2024 9:44 AM EDT Znbdvg662.9 cm (6')10/26/2024 9:44 AM EDTBody Mass Index34.18010/26/2024 9:44 AM EDT Plan of Treatment DateTypeDepartmentCare Team (Latest Contact Info)Zjaenntgyoe45/17/2025 10:00 AM ESTOffice Visit [facility] [address] [facility] [address] [place] [phone] Kristal Calzada PA [address] [facility] [address] [place] [address] Health MaintenanceDue DateLast DoneCommentsCOVID-19 Vaccine ( season) 2025Pneumococcal Vaccine: Pediatrics (0 to 5 Years) and At-Risk Patients (6 to 64 Years)Aged Out05/24/2004, 05/24/2004, 2003, Additional history existsNo longer eligible based on patient's age to complete this topicInfluenza ZnonijhGpqffiulx59/25/2025, 01/29/2024, 03/12/2014, Additional history exists Procedures Procedure NamePriorityDate/TimeAssociated DiagnosisCommentsCCF CMP (CMP) (FOR REMOTE [facility] USE)Hfqgzsb7303/16/2025 11:56 AM EST from Last 3 Months Results * (ABNORMAL) [facility] CMP (CMP) (FOR REMOTE [facility] USE) (03/16/2025 11:56 AM EST) ComponentValueRef RangeTest MethodAnalysis TimePerformed AtPathologist JasfercxlZADRVN112331 - 145 mmol/LTBHPOTASSIUM4.63.5 - 5.1 mmol/LTBHCHLORIDE 29281 - 107 mmol/LTBHCARBON WCTJRFC05.921.0 - 32.0 mmol/LTBHANION GAP13.7TBH WGXNVMM0665 - 106 mg/dLTBHBLOOD UREA IUMCVXJB86.07.0 - 18.0 mg/dLTBHCREATININE 1.34(H)0.70 - 1.30 mg/dLTBHTBH EGFR-AF MONTSERRATIAN>60>=60 mL/min/1.73m 2TBHTBH EGFR-NON AF [place]ERR[place]IAN>60>=60 mL/min/1.73m 2TBHBUN CREATININE RATIO12.7TBH CALCIUM9.08.5 - 10.1 mg/dLTBHBILIRUBIN TOTAL0.50.2 - 1.0 mg/dLTBHASPARTATE AMINO OFEDQKCOIQN0846 - 37 U/LTBHALANINE IYFSPZRGZCKHDAUW2841 - 63 U/LTBH ALKALINE JWYRLHLZFOR0027 - 116 U/LTBHTOTAL PROTEIN7.26.4 - 8.2 g/dLTBHALBUMIN LEVEL3.93.4 - 5.0 g/dLTBHGLOBULIN3.3g/dLTBHALBUMIN GLOBULIN RATIO1.2TBH Specimen (Source)Anatomical Location / LateralityCollection Method / Volume Collection TimeReceived Time03/16/2025 11:56 AM EST03/16/2025 11:59 AM EST Narrative CLIN[facility]YNC - 03/16/2025 12:44 PM EST Authorizing ProviderResult TypeResult StatusGeneric External Data Provider CLINISYNCFinal ResultPerforming OrganizationAddressCity/State/ZIP CodePhone Number CLINISYNC H from Last 3 Months Insurance Care Teams Team MemberRelationshipSpecialtyStart DateEnd Date Kristal Calzada PA [address] [facility] [address] [place] [address] PCP - [facility] [place] [facility]05/06/2211
[2025-04-08 13:20] LABS: Alanine Aminotransferase 38 U/L (16-63); Albumin Globulin Ratio 1.2; Albumin Level 3.8 g/dL (3.4-5.0); Alkaline Phosphatase 86 U/L (46-116); Anion Gap 11.4; Aspartate Amino Transferase 21 U/L (15-37); Blood Urea Nitrogen 19.0 mg/dL (7.0-18.0); Calcium 8.8 mg/dL (8.5-10.1); Carbon Dioxide 29.9 mmol/L (21.0-32.0); Chloride 107 mmol/L (98-107); Estimated GFR (African America >60 (>=60 mL/min/1.73m^2); Estimated GFR (Non-African Ame 52 (>=60 mL/min/1.73m^2); Globulin 3.3 g/dL; Glucose 88 mg/dL (74-106); Potassium 4.3 mmol/L (3.5-5.1); Sodium 144 mmol/L (136-145); Total Protein 7.1 g/dL (6.4-8.2)
== END 2025-04-08 12:13 | disposition home or self-care (01) ==
LOC: LAB 12:14
PROVIDERS: PCP Family Medicine; Visit Provider Internal Medicine
DX: Q61.2 Polycystic kidney, adult type (principal)
CPT/HCPCS: 36415; 80053

== ENCOUNTER 2025-04-26 11:42 | Outpatient (OUT) | payer OTHER, SELFPAY ==
--- OUTSIDE RECORDS SUMMARY | 2025-04-12 09:18 | XMS_ITS | Continuity of Care Document ---
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 Role Phone Jayy Harrison MD Primary Care Provider Sherice Ramirez Attending Provider Care Teams Patient Care Team Team Status: Active Member Role/Relationship Status Vishnu Harrison MD Primary Care Provider Active Visit Care Team Team Status: Inactive Member Role/Relationship Status Dates Jayy Harrison MD Primary Care Provider Active S tart: February 11, 2025 End: February 11Miko Lund ProviderActiveStart: February 11, 2025 End: February 11, 2025 Visit Care Team Team Status: Inactive Member Role/Relationship Status Vishnu Harrison MD Primary Care Provider Active S tart: March 01, 2025 End: March 01bdMiko Hendricks ProviderActiveStart: March 01, 2025 End: March 01, 2025 Visit Care Team Team Status: Inactive Member Role/Relationship Status Vishnu Harrison MD Primary Care Provider Active S tart: March 08, 2025 End: March 08Miko Lund ProviderActiveStart: March 08, 2025 End: March 08, 2025 Visit Care Team Team Status: Active Member Role/Relationship Status Vishnu Harrison MD Primary Care Provider Active S tart: March 16, 2025 Miko Montoya ProviderActiveStart: March 16, 2025 Patient Care Team Team Status: Active Member Role/Relationship Status Dates Jayy Harrison MD Primary Care Provider Active S tart: April 08, 2025 Miko Montoya ProviderActiveStart: April 08, 2025 Patient Care Team Team Status: Inactive Member Role/Relationship Status Dates Jayy Harrison MD Primary Care Provider Active S tart: April 12, 2025 End: April 12Miko Lund ProviderActiveStart: April 12, 2025 End: April 12, 2025 Chief Complaint and Reason for Visit Chief Complaint Admit Date I12.9 Q61.2 February 11, 2025 2: 05pm renal 6 week f/u March 01, 2025 1 :40pm Q61.2 March 08, 2025 7 :29am 5 week f/u April 12, 2025 1 :39pm Reason for Visit Admit Date ADPKD (autosomal dominant polycystic kid von disease) March 01, 2025 1:40pm Hypertensive chronic kidney disease with stage 1 through stage 4 chronic ki March 01, 2025 1:40pm Allergies, Adverse Reactions, Alerts Allergen Type Severity Reaction Last Updated Verified Status sulfamethoxazole Allergy Severe Rash, hives r 2024 1:48pm Yes Active trimethoprim Allergy Severe Rash, hives April 1:48pm Yes Active Social History Smoking Status Status Start Date End Date Date of Observa tion Never smoked tobacco (finding) April 12, 2025 1:49pm Observation Status Observation Response Date of Response Legal Sex Male (finding) Sex Assigned At [facility] 2004 Family History Relationship Condition Age at Onset Recorded Date/T camacho father Hyperlipidemia Unknown motherPolycystic kidney diseaseUnknown Problems Active Problems Problem Diagnosis/Recorded Date Onset Date Status C omments Vestibular dysfunction August 14, 2023 9:11am Unknown Active Neoplasm of unspecified behavior of other specified sitesApril 2023 9:11am UnknownActiveFamily history of polycystic kidney diseaseApril 2023 9:11am UnknownActiveADPKD (autosomal dominant polycystic kidney disease)August 14, 2023 9:11amUnknownActiveHypertensive chronic kidney disease with stage 1 through stage 4 chronic kidney disease, or unspecified chronic kidney diseaseAugust 2024 3:12pmUnknownActivePost concussion syndromeApril 2023 9:11am UnknownActiveBMI 34.0-34.9,adultApril 2023 9:11amUnknownActiveADHDApril 2023 9:18amUnknownActiveInactive/Resolved Problems Problem Diagnosis/Recorded Date Onset Date Status C omments Allergic reaction to drug June 23, 2017 1:00pm Unknown Resolved Probl em List clean-up per request of Phys. EHR Cmte Medications Medication Status Dose Units Route Directions Qty Days Refills S tart Date Stop Date End Date Reason(s) Instructions Adherence Ketoconazole 2 % cream Discontinued 1 APPLIC TOPICAL Twic e daily June 23, 2017 12:00amApril 2023 9:12amFamotidine (Pepcid) 20 mg nwqehoKucdsjmtkkzq64MTBGSuzfp lzevn190Gtnaewsg 2017 12:00amApril 2023 9:17amDiphenhydramine Hcl (Benadryl) 25 mg oorxqcaKathjdbegvzz31SODWA5V as needed for allergic chiythbg651Uehfnpqw 2017 12:00amApril 2023 9:17amuntil resolution of severe allergic reactionPrednisone 50 mg tablet Dthxppwqiygs85SHZXGaltn974Ubwquntz 2017 12:00amApril 2023 9:12am START 06/24/2017 administer with food or milkLisinopril 10 mg myieqqXkcukk56DNOCDsngg010Iufuhxn 2024 1:19pmComplies with drug therapyLisdexamfetamine (Vyvanse) 40 mg yfwylelZsykyupjbcze70YHPJBfdgb1Nauvo 2023 11:00pmAugust 2024 2:53pm Zaleplon 10 mg ehjgfrdIlefvwmqjcbs54RZULYxqgi at bedtimeApril 2023 11:00pm December 31, 2024 2:53pmLisinopril 5 mg nlaissDqzlrpgikdci6FKMFTdzuk329Lhfmpt 2024 11:00pmOctober 2024 1:20pmTolvaptan (Polycys Kidney Dis) (Jynarque) 45 mg (AM)/ 15 mg (PM) tablets, wvwfkrefcySzlmxl6GOKIEN.COMPLEX April 12, 2025 12:00am1 ea orally 45 mg in am, 15 mg in pm;Complies with drug therapy Procedures Procedure Date Performed Status CT abdomen wo con March 08, 2025 7:30am comp leted Relevant Diagnostic Tests and/or Laboratory Data Laboratory Results Test Collection Date/Time Result Date/Time Result Interpretation Reference Range Result Comment Performing Site Anion Gap March 16, 2025 11:56am March 16, 2025 11:56am 13.7 Anion GapDece2024 12:20pmDecember 2024 12:20pm11.4 Albumin/Globulin RatioNove2024 11:56amNovember 2024 11:56am1.2 Albumin/Globulin RatioDece2024 12:20pmDecember 2024 12:20pm1.2 AlbuminNovember 2024 11:56amNovember 2024 11:56am3.9 g/dL3.4-5.0 AlbuminDecemb2024 12:20pmDecember 2024 12:20pm3.8 g/dL3.4-5.0 Alkaline PhosphataseNovember 2024 11:56amNovember 2024 11:56am85 U/L 46-116Alkaline PhosphataseDece2024 12:20pmDecemb2024 12:20pm86 U/E43-115Daqjpoe Aminotransferase (ALT/SGPT)March 16, 2025 11:56amNovember 2024 11:56am48 U/U73-46Tjdtghp Aminotransferase (ALT/SGPT)April 08, 2025 12:20pmDecember 2024 12:20pm38 U/A10-62Wikncxjxq Amino Transf (AST/SGOT)March 16, 2025 11:56amNovember 2024 11:56am23 U/L15-37 Aspartate Amino Transf (AST/SGOT)April 08, 2025 12:20pmDecemb2024 12:20pm21 U/V27-31EXV/Creatinine RatioNove2024 11:56amNovember 2024 11:56am12.7BUN/Creatinine RatioDece2024 12:20pmDecember 2024 12:20pm11.4Blood Urea NitrogenNovember 2024 11:56amNovember 2024 11:56am17.0 mg/dL7.0-18.0Blood Urea NitrogenDece2024 12:20pmDecember 2024 12:20pm19.0 mg/dLAbove high normal7.0-18.0Calcium LevelNovember 2024 11:56amNovember 2024 11:56am9.0 mg/dL8.5-10.1Calcium LevelDece2024 12:20pmDecemb2024 12:20pm8.8 mg/dL8.5-10.1Chloride Level March 16, 2025 11:56amNovember 2024 11:18jx929 mmol/U33-297Luamabpo LevelDece2024 12:20pmDecemb2024 12:51hf986 mmol/S71-933Gsqqgv Dioxide LevelNovember 2024 11:56amNovember 2024 11:56am24.9 mmol/L 21.0-32.0Carbon Dioxide LevelDece2024 12:20pmDecemb2024 12:20pm29.9 mmol/L21.0-32.0CreatinineNovember 2024 11:56amNovember 2024 11:56am1.34 mg/dLAbove high normal0.70-1.30CreatinineDece2024 12:20pmDecemb2024 12:20pm1.66 mg/dLAbove high normal0.70-1.30Estimated GFR ()March 16, 2025 11:56amNovemb2024 11:56am>60 >=60 mL/min/1.73m 2Estimated GFR ()April 08, 2025 12:20pm April 08, 2025 12:20pm>60>=60 mL/min/1.73m 2Estimated GFR (Non- AmericanNov2024 11:56amNovember 2024 11:56am>60>=60 mL/min/1.73m 2Estimated GFR (Non- AmericanDece2024 12:20pm April 08, 2025 12:98hb86Pbxnu low normal>=60 mL/min/1.73m 2GlobulinSaint Claire Medical Center 2024 11:56amNovember 2024 11:56am3.3 g/dLGlobulinDece2024 12:20pmDecemb2024 12:20pm3.3 g/dLGlucose LevelSaint Claire Medical Center 2024 11:56amNoveer 2024 11:56am98 mg/jI90-534Fmxyvuq LevelDece2024 12:20pmDecemb2024 12:20pm88 mg/qW31-769Cihwklwkr LevelSaint Claire Medical Center 2024 11:56amNovember 2024 11:56am4.6 mmol/L3.5-5.1Potassium LevelDece2024 12:20pmDece2024 12:20pm4.3 mmol/L3.5-5.1Sodium LevelSaint Claire Medical Center 2024 11:56amNovember 2024 11:54iu382 mmol/J271-908Ticqho Level April 08, 2025 12:20pmDecemb2024 12:45lw737 mmol/P645-384Zoxba BilirubinSaint Claire Medical Center 2024 11:56amNovember 2024 11:56am0.5 mg/dL0.2-1.0 Total BilirubinDece2024 12:20pmDecemb2024 12:20pm0.4 mg/dL 0.2-1.0Total ProteinSaint Claire Medical Center 2024 11:56amNovember 2024 11:56am7.2 g/dL6.4-8.2Total ProteinDecember 2024 12:20pmDecember 2024 12:20pm7.1 g/dL6.4-8.2Urine ColorOctober 2024 1:09pmOctober 2024 2:14pm Light-yellowYellowUniversity Hospitals [facility] [id number] [address] [facility] [address]Gkdju AppearanceOctober 2024 1:09pmOctober 2024 2:14pmClearClearUniversity Hospitals Geneva [facility] [id number] [address] [facility] [address]Bukeo Specific GravityOctober 2024 1:09pmOctober 2024 2:14pm1.0201.001-1.030[facility] [id number] [address] [facility] [address]Qzviq pHOctober 2024 1:09pmOctober 2024 2:14pm5.5 5.0-9.0[facility] [id number] [address] [facility] [address]Gpbyt Leukocyte EsteraseOctober 2024 1:09pmOctober 2024 2:14pmNegativeNegativeUniversity Hospitals [facility] [id number] [address] [facility] [address]Qhagl NitriteOctober 2024 1:09pmOctober 2024 2:14pm NegativeNegativeUniversity Hospitals [facility] [id number] [address] [facility] [address]Lnigh ProteinOctober 2024 1:09pmOctober 2024 2:14pm Negative mg/dLNegativeUniversity Hospitals [facility] [id number] [address] [facility] [address]Qefnd Glucose (UA)February 11, 2025 1:09pmOctober 2024 2:14pmNormal mg/dLNormalUniversity Hospitals [facility] [id number] [address] [facility] [address]Vjeaa KetonesOctober 2024 1:09pmOctober 2024 2:14pm NegativeNegativeUniversity Hospitals [facility] [id number] [address] [facility] [address]Unuox UrobilinogenOctober 2024 1:09pmOctober 2024 2:14pmNormal mg/dLNormalUniversity Hospitals [facility] [id number] [address] [facility] [address]Hjzqg BilirubinOctober 2024 1:09pmOctober 2024 2:14pm NegativeNegativeUniversity Hospitals [facility] [id number] [address] [facility] [address]Lxuhc Occult BloodOctober 2024 1:09pmOctober 2024 2:14pmNegativeNegCleveland Clinic [facility] [id number] [address] [facility] [address]Dptfb RBCOctober 2024 1:09pmOctober 2024 2:01wz9-3 [HPF]0-4FProMedica Defiance [facility] [id number] [address] [facility] [address]Hydbd WBCOctober 2024 1:09pmOctober 2024 2:63po9-6 [HPF]0-4FProMedica Defiance Regional Hospital [facility] [id number] [address] [facility] [address]Onuyu Squamous Epithelial CellsOctober 2024 1:09pmOctober 2024 2:15pmN/AFProMedica Defiance [facility] [id number] [address] [facility] [address]Lbcjg BacteriaOctober 2024 1:09pmOctober 2024 2:15pm None seen [HPF]None SeenUniversity Hospitals [facility] [id number] [address] [facility] [address]Dwori Hyaline CastsOctober 2024 1:09pmOctober 2024 2:15pmNone [LPF]0-8[facility] [id number] [address] [facility] [address]Hdskvxw LevelOctober 2024 1:09pmOctober 2024 2:44pm81 mg/gN72-388LWI recommended reference rangeRandom Glucose Reference Range is dependent on time and content of last meal. Glucose of more than 200 mg/dL in a nonstressed, ambulatory subject supports the diagnosisof Diabetes Mellitus. [facility] [id number] [address] [facility] [address]Vjvbt Urea NitrogenOctober 2024 1:09pmOctober 2024 2:44pm21 mg/dL7-25[facility] [id number] [address] [facility] [address]DxsyxlewatHvrobav 2024 1:09pmOctober 2024 2:44pm1.34 mg/dLAbove high normal0.70-1.30[facility] [id number] [address] [facility] [address]Bljnmbftr GFR (CKD-EPI)February 11, 2025 1:09pmOctober 2024 2:44pm> 60.0 mL/MinUniversity Hospitals [facility] [id number] [address] [facility] [address]Jiinsu LevelOctober 2024 1:09pmOctober 2024 2:73up289 mmol/X202-451FvtzkgrftUniversity Hospitals [facility] [id number] [address] [facility] [address]Albjjllui LevelOctober 2024 1:09pmOctober 2024 2:44pm 4.7 mmol/L3.5-5.1FProMedica Defiance Regional Hospital [facility] [id number] [address] [facility] [address]Tugwtswx LevelOctober 2024 1:09pmOctober 2024 2:44pm 103 mmol/K50-450QaxtlsebgUniversity Hospitals [facility] [id number] [address] [facility] [address]Qhiswu Dioxide LevelOctober 2024 1:09pmOctober 2024 2:44pm28.7 mmol/L21.0-31.0[facility] [id number] [address] [facility] [address]Muqij GapOctober 2024 1:09pmOctober 2024 2:44pm13.0 mEq/L6.0-15.0[facility] [id number] [address] [facility] [address]Xzmsjyj LevelOctober 2024 1:09pmOctober 2024 2:44pm 9.5 mg/dL8.6-10.3FProMedica Defiance Regional Hospital [facility] [id number] [address] [place] [address]Xnxfckypaa LevelOctober 2024 1:09pmOctober 2024 2:44pm3.7 mg/dL2.5-4.5FProMedica Defiance Regional Hospital [facility] [id number] [address] [place] [address]HeffuxaNaseeum 2024 1:09pmOctober 2024 2:44pm4.7 g/dL 3.5-5.7FProMedica Defiance Regional Hospital [facility] [id number] [address] [place] [address]Mqhisvgx Creatinine Clearance (ChemOctober 2024 1:09pm February 11, 2025 2:44pmN/AFProMedica Defiance [facility] [id number] [address] [place] [address] Diagnostic Imaging Reports Author Kristal Yañez [facility] HospitalAuthoredNovvalleywise behavioral [facility] 2024 9:22amReportDictated Date/TimeDictated ByStatusRadiology ReportSaint Claire Medical Center 2024 9:22amKristal Yañez [facility]pC[facility] [place] [address] [place], [place] [id number] CT Scan Report Signed Patient: Zion Dorado MR#: [id number] : 2005 Acct:[id number] Age/Sex: 20 / M ADM Date: 5 Loc: CT Room: Type: [facility] Attending Dr: Kristen Ramirez MD Copies to: Kristen Ramirez MD~ Ordering Provider: Kristen Ramirez MD Date of Service: 03/08/25 CT/CT abdomen wo con: to measure kidney volume CT ABDOMEN WITHOUT CONTRAST CLINICAL DATA: Follow-up polycystic kidneys. COMPARISON: 12/20/2022 Spiral images were obtained through the abdomen without contrast. This CT exam was performed using one or more following dose reduction techniques: Automated exposure control, adjustment of the mA and/or kV according to patient size, or use of iterative reconstruction technique. Limited imaging through the lung bases shows no contributory findings. Evaluation of the intra-abdominal organs is slightly limited by the absence of contrast. No calcified gallstones are identified. No intrahepatic masses are seen. The spleen, pancreas and adrenal glands show no acute findings. No renal calculi or hydronephrosis are noted. There is a 7 mm hyperdense nodule at the lower pole of the right kidney that may be a hemorrhagic cyst. Additional smaller hyperdense nodules suggesting hemorrhagic cysts are also noted on both sides. There are several hypodense renal nodules of varying size measuring up t o almost 3 cm in diameter suggesting cysts. The right kidney measures approximately 14.0 x 6.6 x 7.6 cm in size (367 mL). The left kidney measures 12.9 x 6.2 x 7.2 cm in size (301 mL). The abdominal aorta is normal caliber. There are small retroperitoneal and mesenteric lymph nodes. No ascites is seen. There is a tiny umbilical hernia containing fat. The small bowel loops are normal caliber. There is mild colonic stool. The bony structures are intact. CT/CT abdomen wo con IMPRESSION: NO OBSTRUCTIVE UROPATHY OR STONE DISEASE. MULTIPLE SUSPECTED SIMPLE AND HEMORRHAGIC RENAL CYSTS. NO ACUTE FINDINGS. Impression dictated by: Kristal Yañez M.D. 03/08/2025 9:54 AM Dictation Location: [place] [address] Transcribed By: [facility] 03/08/25 0954 Dictated By: Kristal Yañez MD 03/08/25 0922 Signed By: <Electronically signed by MD Kristal Yañez in OV> 03/08/25 0954 Vital Signs Vital Reading Result Reference Range Collection Date/Time Height 73 [in_i] March 01, 2025 12:36erFdwbac002.20 kgOct2024 12:49pmHeart Rate74 /hjc89-133GbwuaroMarch 01, 2025 12:49pmRespiratory rate18 /hxf87-45QwbpnycMarch 01, 2025 12:49pmOxygen saturation by Pulse kqrmttoi35 %95-100March 01, 2025 12:49pmBP Guftshll663 mm[Hg]100-140Oct2024 12:52pmBP Egbozetby89 mm[Hg]60-100October 2024 12:52pmBMI (Body Mass Index)38.1 kg/o4Exsuxju 2024 12:13iyUwaais94 [in_i]April 12, 2025 1:33dfPykidh390.80 kg April 12, 2025 1:45pmBody Cfpwwjnfvmi35.6 [degF]97.6-99.0December 2024 1:45pmHeart Rate53 /nnr90-049JqyqynndApril 12, 2025 1:45pmRespiratory rate18 /min 12-24Dece2024 1:45pmOxygen saturation by Pulse zckhered17 %95-100 April 12, 2025 1:45pmBP Dhmtmqyx078 mm[Hg]100-140Dece2024 1:45pmBP Dcqbegmmd22 mm[Hg]60-100Decemb2024 1:45pmBMI (Body Mass Index)38.0 kg/z4Hngqxdmn2024 1:45pm Advance Directives Advance Directive Response Recorded Date/ Time Advance Directives No August 13 9:06am Insurance Providers Guarantor Babita Barrera Address [address] [facility] [address] [facility] [id number] Info.Home Phone: Coverage Status Update:2025 Payer Group Member ID Coverage Type Subscriber Relationship to Subscriber Effective Date Expiration Date [facility] Id: [id number] Briana Dorado Id: [id number] [address] [facility] [address] [facility] [address] Home Phone: Encounters Encounter Location(s) Arrival/Admit Date Discharge/Departure Date Discharge/Departure Disposition Provider(s) Departed Clinical -Lab [facility] February 11, 2025 2:05pm February 11, 2025 2:06pm Discharged to home care or self care (routine discharge) Kristen Ramirez MD Departed Physician/ Provider Office Visit -[facility] March 01, 2025 1:40pm March 01, 2025 2:26pm Discharged to home care or self care (routine discharge) Kristen Ramirez MD Departed Clinical -CT Scan [facility] March 08, 2025 7:29am March 08, 2025 7:30am Discharged to home care or self care (routine discharge) Kristen Ramirez MD Non-patient / Non-visit -[facility] March 16, 2025 11:56am Kristen Ramirez MDNon-patient / Uty[facility]sisxc-[facility] 2024 12:20pmDARIA Montoyaeparted Physician/Provider [facility] 1:39pmDecetuba city regional [facility] 2024 2:09pmDischarged to home care or self care (routine discharge)Kristen Ramirez MD Recent Diagnosis Onset Date Admit Date ADPKD (autosomal dominant po lycystic kidney disease) Unknown March 01, 2025 1:40pm Hypertensive chronic kidney disease with stage 1 through stage 4 chronic ki Unknown March 01, 2025 1:40pm Assessments Diagnosis Onset Date Resolution Status Admit Date ADPKD (autosomal dominant polycystic kid von disease) acuteOctober 2024 1:40pmHypertensive chronic kidney disease with stage 1 through stage 4 chronic kiacuteOctober 2024 1:40pm Plan of Treatment Author Kristen Ramirez [facility] HospitalAuthoredOctober 2024 3:53pmPatient has a ADPKD. Will get a CAT scan abdomen pelvis again to calculate the risk for progression of the CKD. I discussed with him the possible option of tolvaptan depending on his kidney volume. I explained to him the benefit of the tolvaptan to slow down progression of CKD. Will contact the hospital about his prior authorization for CT scan. His blood pressure is running high but he appears to be euvolemic. I have increased the dose of lisinopril to 10 mg daily. Advised to continue to monitor blood pressure at home and call office if stays above 140 over 90 mmHg. Future Tests Future scheduled test information is unavailable Pending Tests Test Name Ordered Date Scheduled Date Renal Function Panel March 01, 2025 1:22pm 3 Months Future Visits Future appointment information is unavailable Future Procedures Procedure Name Ordered Date Scheduled Date Dipstick and Microscopic March 01, 2025 1:22 pm 3 Months Hemogram CBC Without Diff March 01, 2025 1:2 2pm 3 Months Magnesium March 01, 2025 1:22pm 3 Saurabh hs Protein Creat Ratio Ur Random March 01, 2025 1:22pm 3 Months Future Medications Future medication information is unavailable Patient Instructions Patient instructions are unavailable
--- OUTSIDE RECORDS SUMMARY | 2025-04-21 10:00 | XMS_ITS | Encounter Summary ---
Author Organization [facility] Address [address] [facility] [place] [address] Care Team Providers Care Raw Cheese Worker Name Role Phone Kristal Calzada Unavailable Encounter Details DateTypeDepartmentCare Team (Latest Contact Info)Eutrrpyzdib78/17/2025 10:00 AM ESTOffice Visit [facility] [facility] [address] [place] [address] Kristal Calzada PA [address] [place] [address] Hypertensive chronic kidney disease with stage 1 through stage 4 chronic kidney disease, or unspecified chronic kidney disease (Primary Dx); Attention deficit hyperactivity disorder (ADHD), combined type Social History Tobacco UseTypesPacks/DayYears UsedDateSmoking Tobacco: NeverSmokeless Tobacco: NeverAlcohol UseStandard Drinks/WeekCommentsYes7 (1 standard drink = 0.6 oz pure alcohol)Caffeine intake: drinks a soda/pop [id number] Health LiteracyAnswerDate RecordedHow often do you need [...] relatives?Once a week10/23/2024How often do you attend latter day or amish services?More than 4 times per year10/23/2024Do you belong to any clubs or organizations such as latter day groups, unions, fraBeta Dash or athletic groups, or school groups?No10/23/2024How often do you attend meetings of the clubs or organizations you belong to?Never10/23/2024re you , , , , never , or living with a partner?Never hjxzggq9410/23/2024UDIT-CAnswerDate RecordedQ1: How often do you have a [...] and heating?Not very hard10/23/2024PHQ-2AnswerDate RecordedPatient Health Questionnaire-2 Yngbj858[facility] [place] of Occupational Health - Occupational Stress QuestionnaireAnswerDate [...] steady place to sleep or slept in [facility] (including now)?No 04/01/2023Housing Stability Vital SignAnswerDate RecordedIn the last 12 months, was there a time when you were not able to pay the mortgage or rent on time?No 10/23/2024In the past 12 months, how many times have you moved where you were living?t any time in the past 12 months, were you homeless or living in a group home (including now)?No10/23/2024Sex and Gender InformationValueDate RecordedSex Assigned at BirthNot on fileLegal LdnGcyg5207/18/2022 6:50 PM EDT Gender IdentityNot on fileSexual OrientationNot on filedocumented as of this encounter Last Filed Vital Signs Vital SignReadingTime TakenCommentsBlood Mhaalrkj122/8404/21/2025 10:04 AM EST Gkimg576604/21/2025 10:04 AM ESTTemperature--Respiratory Ujzk448106/22/2024 10:04 AM ESTOxygen Duuxsdsumi03%04/21/2025 10:04 AM ESTInhaled Oxygen Concentration-- Thhavz475 kg (294 lb)04/21/2025 10:04 AM IYJIambwt186.9 cm (6')04/21/2025 10:04 AM ESTBody Mass Index39.8704/21/2025 10:04 AM ESTdocumented in this encounter Functional Status * Over the past 2 weeks, how often have you been bothered by any of the following problems?QuestionAnswerDate of AssessmentAuthorLittle interest or pleasure in doing thingsNot at all04/21/2025 9:57 AM Ann Keenan LPN Feeling down, depressed, or hopelessNot at all04/21/2025 9:57 AM Ann Keenan LPNPatient Health Questionnaire-2 Kwita63906/22/2024 9:57 AM Ann Keenan LPN documented as of this encounter Progress Notes * KIMO Burns - 04/21/2025 10:00 AM EST Images from the original note were not included. Subjective Patient ID: Zion Dorado is a 20 y.o. male who presents for ADHD. Zion is present today for follow up ADHD. At his last visit he was started on Clonidine and he stopped taking it d/t his kidney doctor recommended he not take it while he is also on Tolvaptan. He would like to discuss other options for his ADHD though. Loses focus throughout the day. Tends to be distracted when driving or in school. Feels like he constantly has to be doing something. Switches back and forth on doing things. Starts multiple projectswithout finishing. Re-reads things multiple times, because he cannot remember what he read. 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 School is going ok. Still working at [employer]. Still following with Nephrology, Dr. Ramirez. Over the past 2 weeks, how often have you been bothered by any of the following problems? Little interest or pleasure in doing things: Not at all Feeling down, depressed, or hopeless: Not at all Patient Health Questionnaire-2 Score: 0 Current Outpatient Medications on File Prior to Visit Medication Sig Dispense Refill lisinopril 10 MG tablet Take 10 mg by mouth Daily Tolvaptan 45 & 15 MG tablet therapy pack Take 15-45 mg by mouth See administration nsvauusbvmvn62 mg in the morning and 15 mg at night [DISCONTINUED] cloNIDine ER (Kapvay) 0.1 MG tablet sustained-release 12 hour TAKE 1 TABLET BY MOUTHIN THE MORNING AND 1 TABLET AT NOON. (Patient not taking: Reported on 04/21/2025) 180 tablet 2 No current facility-administered medications on file prior to visit. I have reviewed and reconciled the history and medication list with the patient today. Allergies Allergen Reactions Sulfamethoxazole-Trimethoprim Fever, Hives, Itching, Rash and Runny nose Other Reaction(s): Unknown Social History Tobacco Use Smoking status: Never Smokeless tobacco: Never Vaping Use Vaping status: Never Used Substance Use Topics Alcohol use: Yes Alcohol/week: 7.0 standard drinks of alcohol Types: 7 Standard drinks or equivalent per week Comment: Caffeine intake: drinks a soda/pop weekly Drug use: Yes Types: Amphetamines Family History Problem Relation Name Age of Onset Kidney disease Mother Heart disease Mother Polycystic kidney disease Mother Hyperlipidemia Father Heart disease Maternal Grandfather Cancer Paternal Grandmother Cancer Paternal Grandfather Hyperlipidemia Other Hypertension Other Kidney disease Other Polycystic kidney disease Other Past Medical History: Diagnosis Date Abnormal ultrasound 04/02/2023 Allergic reaction to drug 08/13/2023 Personal history of medical treatment 08/03/2022 US of Kidneys are mildly ectactic containing too numerous to count simple cysts which may be consistent with polycystic kidney disease. Vestibular dysfunction 04/02/2023 History reviewed. No pertinent surgical history. Visit Vitals BP 120/84 Pulse 83 Resp 16 Ht 6' Wt 294 lb SpO2 98% BMI 39.87 kg/m?? Smoking Status Never BSA 2.6 m?? Review of Systems Constitutional: Negative for chills, fatigue and fever. Respiratory: Negative for cough, shortness of breath and wheezing. Cardiovascular: Negative for chest pain, palpitations and leg swelling. Gastrointestinal: Negative for abdominal pain, constipation, diarrhea, nausea and vomiting. Skin: Negative for rash. Psychiatric/Behavioral: Positive for decreased concentration. Objective Physical Exam Constitutional: General: He is not in acute distress. Appearance: He is obese. HENT: Head: Normocephalic and atraumatic. Eyes: General: No scleral icterus. Cardiovascular: Rate and Rhythm: Normal rate and regular rhythm. Heart sounds: No murmur heard. Pulmonary: Effort: Pulmonary effort is normal. No respiratory distress. Breath sounds: Normal breath sounds. No wheezing, rhonchi or rales. Musculoskeletal: General: No swelling. Skin: General: Skin is warm and dry. Neurological: General: No focal deficit present. Mental Status: He is alert and oriented to person, place, and time. Psychiatric: Mood and Affect: Mood normal. Behavior: Behavior normal. Assessment/Plan Diagnoses and all orders for this visit: Hypertensive chronic kidney disease with stage 1 through stage 4 chronic kidney disease, or unspecified chronic kidney disease Patient's BP is stable at this time on current medications. The medications are being managed by Dr. Ramirez. He will continue to follow up at his office as per his instruction. Attention deficit hyperactivity disorder (ADHD), combined type Discussed possible medications with the pt that are non-stimulant, including Intuniv, Qelbree, Strattera, and Wellbutrin. He will consider these options and contact the office with the name of one hewould like to try, if he chooses to do so. Follow up with KIMO Yang in 27 weeks (on 10/27/2025 Wellness). documented in this encounter Plan of Treatment DateTypeDepartmentCare Team (Latest Contact Info)Zjtoqfrttlb04/17/2026 9:00 AM EDTOffice Visit [facility] [place] [facility] [address] [facility] [address] [place] [address] Kristal Calzada PA [address] [facility] [address] [place] [address] documented as of this encounter Visit Diagnoses Diagnosis Hypertensive chronic kidney disease with stage 1 through stage 4 chronic kidney disease, or unspecified chronic kidney disease- Primary Attention deficit hyperactivity disorder (ADHD), combined type documented in this encounter Care Teams Team MemberRelationshipSpecialtyStart DateEnd Date Kristal Calzada PA [address] [facility] [address] [place] [address] PCP - Medical [place] [employer]05/06/2211documented as of this encounter
--- OUTSIDE RECORDS SUMMARY | 2025-04-26 11:48 | XMS_ITS | Encounter Summary ---
Author Organization [facility] Address [address] [place] [address] Care Team Providers Care Vocational Nurse Name Role Phone Kristal Calzada PA Unavailable [phone] Encounter Details DateTypeDepartmentCare Team (Latest Contact Info)Captrmfdyvm45/17/2025Travel Social History Tobacco UseTypesPacks/DayYears UsedDateSmoking Tobacco: NeverSmokeless Tobacco: NeverAlcohol UseStandard Drinks/WeekCommentsYes7 (1 standard drink = 0.6 oz pure alcohol)Caffeine intake: drinks a soda/pop aixkehZ5151 Health LiteracyAnswerDate RecordedHow often do you need [...] relatives?Once a week10/23/2024How often do you attend jewish or buddhism services?More than 4 times per year10/23/2024Do you belong to any clubs or organizations such as jewish groups, unions, fraternal or athletic groups, or school groups?No10/23/2024How often do you attend meetings of the clubs or organizations you belong to?Never10/23/2024re you , , , , never , or living with a partner?Never qzhvyhd0210/23/2024UDIT-CAnswerDate RecordedQ1: How often do you have a [...] and heating?Not very hard10/23/2024PHQ-2AnswerDate RecordedPatient Health Questionnaire-2 Jimqw31806/22/2024Fin[facility] [place] of Occupational Health - Occupational Stress QuestionnaireAnswerDate [...] steady place to sleep or slept in [place] (including now)?No 04/01/2023Housing Stability Vital SignAnswerDate RecordedIn the last 12 months, was there a time when you were not able to pay the mortgage or rent on time?No 10/23/2024In the past 12 months, how many times have you moved where you were living?t any time in the past 12 months, were you homeless or living in a correction (including now)?No10/23/2024Sex and Gender InformationValueDate RecordedSex Assigned at BirthNot on fileLegal EwnGbto7107/18/2022 6:50 PM EDT Gender IdentityNot on fileSexual OrientationNot on filedocumented as of this encounter Plan of Treatment DateTypeDepartmentCare Team (Latest Contact Info)Ubjlzklikaf15/17/2026 9:00 AM EDTOffice Visit [facility] [place] [facility] [address] [place] [address] Kristal Calzada PA [address] [place] [address] documented as of this encounter Visit Diagnoses Not on filedocumented in this encounter Care Teams Team MemberRelationshipSpecialtyStart DateEnd Kristal Calzada PA [address] [place] [address] PCP - Medical [place] [employer]05/06/2211documented as of this encounter
--- OUTSIDE RECORDS SUMMARY | 2025-04-26 11:48 | XMS_ITS | Clinical Summary ---
Author Organization [facility] Address [address] [place] [address] Care Team Providers Care Animal Rides Manager Name Role Phone Kristal Calzada PA Unavailable Allergies Active AllergyReactionsCriticalityNoted DateComments Sulfamethoxazole-TrimethoprimFever,Hives,Itching,Rash,Runny rzymPje0604/02/2023 Other Reaction(s): Unknown Medications MedicationSigDispense QuantityRefillsLast FilledStart DateEnd DateStatus lisinopril 10 MG tablet Take 10 mg by mouth Daily5Active Tolvaptan 45 & 15 MG tablet therapy pack Take 15-45 mg by mouth See administration instructions 45 mg in the morning and 15 mg at night5Active cloNIDine ER (Kapvay) 0.1 MG tablet sustained-release 12 hour Indications:Attention deficit hyperactivity disorder (ADHD), combined typeTAKE 1 TABLET BY MOUTH IN THE MORNING AND 1 TABLET AT NOON. 180 tablet Discontinued Active Problems ProblemNoted DateDiagnosed DateHypertensive chronic kidney disease with stage 1 through stage 4 chronic kidney disease, or unspecified chronic kidney disease 04/21/2025DPKD (autosomal dominant polycystic kidney disease)10/22/2023 Attention deficit hyperactivity disorder (ADHD), combined type07/25/2023cne 04/02/2023lass 1 obesity due to excess calories without serious comorbidity with body mass index (BMI) of 34.0 to 34.9 in adult04/02/2023Epidermoid cyst 04/02/2023Family history of polycystic kidney buugdiy1104/02/2023Family history of sudden cardiac death04/02/2023ostconcussive uwntkdgl22/28/2023rimary insomnia 04/02/2023 Resolved Problems ProblemNoted DateDiagnosed DateResolved DateClass 2 severe obesity due to excess calories with serious comorbidity and body mass index (BMI) of35.0 to 35.9 in adult/MI 34.0-34.9,adult/Neoplasm of unspecified behavior of other specified sites/llergic reaction to drug/olycystic kidney fvakdjr0904/02/2023 10/26/2024bnormal alfnxtpzva48Muscle rmsgzo5106/02/2022 10/26/2024Rib pain on left side/01/20240869Mkbcttshu58/28/202301/07/2023 Vestibular hxhsdtadhdt08/28/202304/01/2024Well child check/01/2024 Encounters DateTypeDepartmentCare XttsRgalflemenz91/17/2025 10:00 AM ESTOffice Visit [facility] [place] [facility] [address] [facility] [address] [place] [phone] Kristal Calzada PA Hypertensive chronic kidney disease with stage 1 through stage 4 chronic kidney disease, or unspecified chronic kidney disease (Primary Dx); Attention deficit hyperactivity disorder (ADHD), combined type04/21/2025amboo flowsheet [facility] [place] [facility] [address] [facility] [address] [place] [phone] Kristal Calzada PA 04/21/20259966Wesfhz54/10/2025bstract [facility] [place] [facility] [address] [facility] [address] [place] [address] Kristal Calzada PA 04/08/2025linisync Result Encounter [facility] External Department Unsolicited Provider, Generic External Data 03/16/2025linisync Result Encounter [facility] External Department Unsolicited Provider, Generic External Data 03/16/2025bstract [facility] [address] [place] [id number] Unallocated, Noms MD Naty 03/03/2025bstract [facility] [place] [facility] [address] [place] [address] Kristal Calzada, KIMO from Last 3 Months Immunizations ImmunizationAdministration DatesNext IgzLHH6005/24/2004DTaP105/10/2007,05/24/2004, 2003DTaP / Hep B / IPV2003DTaP, Hfllepgzdeb17/18/2004,2003Hep A, ped/adol, 2 dose05/31/2017,11/22/2016Hep B, Adolescent or Hmgidpzoh18/02/2004 ,2003Hep B, adult2003HiB, jfqedxanpwl17/19/2005,2003, 2003Hib (PRP-T)2003IPV105/10/2007Influenza Whole02/21/2005Influenza, live, zjbybgtmwv84/16/2013,03/04/2012,04/27/2011,03/10/2008Influenza, seasonal, sioqnhbgfd81/31/2007,02/23/2004Influenza, seasonal, injectable, preservative free01/28/2025,01/29/2024,03/12/2014,02/22/2010MMR105/10/2007,02/23/2004 Meningococcal ACWY, glqsrbbywfj12/19/2016Meningococcal JVG4P6711/28/2020 Meningococcal CFF5U1011/22/2015Novel Nkmlgconq-X2H8-96, nasal04/08/2009 Pneumococcal Conjugate PCV 13005/24/2004Pneumococcal Conjugate PCV 7011/24/2003, 2003Pneumococcal, Xphpdhberrc81/19/2005Polio, [place]13/05/2008, 2003,2003,2003TD (adult), 2 Lf tetanus toxoid, preservative free, bgtunyad37/19/3968Llro64/19/2016,03/10/2008,05/24/2004,2003, 2003,05/07/20031067Pdcavibdm60/05/2008,02/23/2004 Family History Medical HistoryRelationNameCommentsHyperlipidemiaFatherHeart diseaseMaternal GrandfatherHeart diseaseMotherKidney diseaseMotherPolycystic kidney disease MotherHyperlipidemiaOther 1HypertensionOther 1Kidney diseaseOther 1Polycystic kidney diseaseOther 2CancerPaternal GrandfatherCancerPaternal Grandmother RelationNameStatusCommentsFatherAliveMaternal GrandfatherDeceasedMaternal GrandmotherAliveMotherAliveOther 1Family hxOther 2AliveUnclesPaternal GrandfatherDeceasedPaternal GrandmotherDeceased Social History Tobacco UseTypesPacks/DayYears UsedDateSmoking Tobacco: NeverSmokeless Tobacco: Never Tobacco Cessation:Counseling Given: Not Answered Alcohol UseStandard Drinks/WeekCommentsYes7 (1 standard drink = 0.6 oz pure alcohol)Caffeine intake: drinks a soda/pop wxerhxT9575 Health LiteracyAnswerDate RecordedHow often do you need [...] relatives?Once a week10/23/2024How often do you attend samaritan or presybeterian services?More than 4 times per year10/23/2024Do you belong to any clubs or organizations such as samaritan groups, unions, fraternal or athletic groups, or school groups?No10/23/2024How often do you attend meetings of the clubs or organizations you belong to?Never10/23/2024re you , , , , never , or living with a partner?Never yrswyod4410/23/2024UDIT-CAnswerDate RecordedQ1: How often do you have a [...] and heating?Not very hard10/23/2024PHQ-2AnswerDate RecordedPatient Health Questionnaire-2 Bnewx61106/22/2024Fin[facility] [place] of Occupational Health - Occupational Stress QuestionnaireAnswerDate [...] steady place to sleep or slept in ashelter (including now)?No 04/01/2023Housing Stability Vital SignAnswerDate RecordedIn the last 12 months, was there a time when you were not able to pay the mortgage or rent on time?No 10/23/2024In the past 12 months, how many times have you moved where you were living?t any time in the past 12 months, were you homeless or living in a long term (including now)?No10/23/2024Sex and Gender InformationValueDate RecordedSex Assigned at BirthNot on fileLegal OmtXokd0007/18/2022 6:50 PM EDT Gender IdentityNot on fileSexual OrientationNot on file Last Filed Vital Signs Vital SignReadingTime TakenCommentsBlood Qalnreds495/8404/21/2025 10:04 AM EST Wnlaw613304/21/2025 10:04 AM VWROsrhkrwuwtr65.4 ??C (99.4 ??F)10/22/2023 10:03 AM EDTRespiratory Ldef491206/22/2024 10:04 AM ESTOxygen Urzoxvsoct60%04/21/2025 10:04 AM ESTInhaled Oxygen Concentration--Mvgdxh470 kg (294 lb)04/21/2025 10:04 AM EST Xutnxm439.9 cm (6')04/21/2025 10:04 AM ESTBody Mass Index39.8704/21/2025 10:04 AM EST Plan of Treatment DateTypeDepartmentCare Team (Latest Contact Info)Dvajqalnrlk36/17/2026 9:00 AM EDTOffice Visit [facility] [place] [facility] [address] [place] [address] Kristal Calzada PA [address] [facility] [address] [place] [address] Health MaintenanceDue DateLast DoneCommentsCOVID-19 Vaccine (2024- season) 505/3Pneumococcal Vaccine: Pediatrics (0 to 5 Years) and At-Risk Patients (6 to 64 Years)Aged Out05/24/2004, 05/24/2004, 2003, Additional history existsNo longer eligible based on patient's age to complete this topic Influenza EhjelbnZiezeeoxz10/25/2025, 01/29/2024, 03/12/2014, Additional history exists Procedures Procedure NamePriorityDate/TimeAssociated DiagnosisCommentsCCF CMP (CMP) (FOR REMOTE [facility] USE)Qlklwtq8004/08/2025 12:20 PM EST CCF CMP (CMP) (FOR REMOTE [facility] USE)Elpswdc3403/16/2025 11:56 AM EST from Last 3 Months Results * (ABNORMAL) [facility] CMP (CMP) (FOR REMOTE [facility] USE) (04/08/2025 12:20 PM EST) Only the most recent of2 resultswithin the time period is included. ComponentValueRef RangeTest MethodAnalysis TimePerformed AtPathologist Signature MRGIGO622327 - 145 mmol/LTBHPOTASSIUM4.33.5 - 5.1 mmol/OEUAERAWOVCQ71520 - 107 mmol/LTBHCARBON ZDFOQSM02.921.0 - 32.0 mmol/LTBHANION GAP11.9EXSWVIZIZP6906 - 106 mg/dLTBHBLOOD UREA BRACXCCA03.0(H)7.0 - 18.0 mg/dLTBHCREATININE1.66(H)0.70 - 1.30 mg/dLTBHTBH EGFR-AF SAMMARINESE>60>=60 mL/min/1.73m 2TBHTBH EGFR-NON AF AZOVOQDF94(L)>=60 mL/min/1.73m 2TBHBUN CREATININE RATIO11.2OCGCKLBEFW6.88.5 - 10.1 mg/dLTBHBILIRUBIN TOTAL0.40.2 - 1.0 mg/dLTBHASPARTATE AMINO ZDOXDIZLMUU1154 - 37 U/LTBHALANINE JVYOYEMWOOMQGUWQ8472 - 63 U/LTBHALKALINE HZFHHOFGFNR1272 - 116 U/LTBHTOTAL PROTEIN7.16.4 - 8.2 g/dLTBHALBUMIN LEVEL3.83.4 - 5.0 g/dLTBH GLOBULIN3.3g/dLTBHALBUMIN GLOBULIN RATIO1.2TBHSpecimen (Source)Anatomical Location / LateralityCollection Method / VolumeCollection TimeReceived Time 04/08/2025 12:20 PM EST04/08/2025 12:26 PM EST Narrative [facility]IN[facility]NC - 04/08/2025 1:25 PM EST Authorizing ProviderResult TypeResult StatusGeneric External Data Provider CLINISYNCFinal ResultPerforming OrganizationAddressCity/State/ZIP CodePhone Number CLINISYNC [facility] from Last 3 Months Insurance Care Teams Team MemberRelationshipSpecialtyStart DateEnd Date Kristal Calzada PA [address] [place] [address] PCP - Medical [place] [employer]05/06/2211
--- OUTSIDE RECORDS SUMMARY | 2025-04-26 11:48 | XMS_ITS | Encounter Summary ---
Author Organization [facility] Address [address] [facility] [place] [address] Care Team Providers Care Waxer Tender Name Role Phone Kristal Calzada Unavailable [phone] Encounter Details DateTypeDepartmentCare Team (Latest Contact Info)Jsqztbgglhg80/17/2025amboo flowsheet [facility] [place] [facility] [address] [place] [address] Kristal Calzada PA [address] [place] [address] Social History Tobacco UseTypesPacks/DayYears UsedDateSmoking Tobacco: NeverSmokeless Tobacco: NeverAlcohol UseStandard Drinks/WeekCommentsYes7 (1 standard drink = 0.6 oz pure alcohol)Caffeine intake: drinks a soda/pop wjgnjoR1621 Health LiteracyAnswerDate RecordedHow often do you need [...] relatives?Once a week10/23/2024How often do you attend religious or confucianist services?More than 4 times per year10/23/2024Do you belong to any clubs or organizations such as religious groups, unions, [employer] or athletic groups, or school groups?No10/23/2024How often do you attend meetings of the clubs or organizations you belong to?Never10/23/2024re you , , , , never , or living with a partner?Never tmtrwqb7810/23/2024UDIT-CAnswerDate RecordedQ1: How often do you have a [...] and heating?Not very hard10/23/2024PHQ-2AnswerDate RecordedPatient Health Questionnaire-2 Wimoy26406/22/2024[facility] [place] of Occupational Health - Occupational Stress QuestionnaireAnswerDate [...] steady place to sleep or slept in [place] (including now)?No 04/01/2023Housing Stability Vital SignAnswerDate RecordedIn [...] InformationValueDate RecordedSex Assigned at BirthNot on fileLegal QrrHikf4307/18/2022 6:50 PM EDT Gender IdentityNot on fileSexual OrientationNot on filedocumented as of this encounter Plan of Treatment DateTypeDepartmentCare Team (Latest Contact Info)Xtbmfqlkxfh35/17/2026 9:00 AM EDTOffice Visit [facility] [place] [facility] [address] [place] [phone] Kristal Calzada PA [address] [place] [address] documented as of this encounter Visit Diagnoses Not on filedocumented in this encounter Care Teams Team MemberMalinahipSpecialtyStart DateEnd Date Kristal Calzada PA [address] [place] [address] PCP - Medical [place] [employer]05/06/2211documented as of this encounter
--- OUTSIDE RECORDS SUMMARY | 2025-04-26 11:49 | XMS_ITS | Encounter Summary ---
Author Organization [facility] Address [address] [facility] [place] [address] Care Team Providers Care Certified [employer] Engineer Name Role Phone Kristal Calzada Unavailable [phone] Encounter Details DateTypeDepartmentCare Team (Latest Contact Info)Hiaamwarqab95/10/2025bstract [facility] [address] [place] [address] Kristal Calzada PA [address] [place] [address] Social History Tobacco UseTypesPacks/DayYears UsedDateSmoking Tobacco: NeverSmokeless Tobacco: NeverAlcohol UseStandard Drinks/WeekCommentsYes7 (1 standard drink = 0.6 oz pure alcohol)Caffeine intake: drinks a soda/pop [id number] Health LiteracyAnswerDate RecordedHow often do you need [...] relatives?Once a week10/23/2024How often do you attend lutheran or temple services?More than 4 times per year10/23/2024Do you belong to any clubs or organizations such as lutheran groups, unions, [employer] or athletic groups, or school groups?No10/23/2024How often do you attend meetings of the clubs or organizations you belong to?Never10/23/2024re you , , , , never , or living with a partner?Never swnqtsd6710/23/2024UDIT-CAnswerDate RecordedQ1: How often do you have a [...] and heating?Not very hard10/23/2024PHQ-2AnswerDate RecordedPatient Health Questionnaire-2 [facility]vo048[facility] [place] [facility] - Occupational Stress QuestionnaireAnswerDate [...] were you homeless or living in a detention (including now)?No10/23/2024Sex and Gender InformationValueDate RecordedSex Assigned at BirthNot on fileLegal ObeIexi5807/18/2022 6:50 PM EDT Gender IdentityNot on fileSexual OrientationNot on filedocumented as of this encounter Plan of Treatment DateTypeDepartmentCare Team (Latest Contact Info)Qnqftvydymo16/17/2026 9:00 AM EDTOffice Visit [facility] [address] [place] [id number] Kristal Calzada PA [address] [place] [address] documented as of this encounter Visit Diagnoses Not on filedocumented in this encounter Care Teams Team MemberRelationshipSpecialtyStart DateEnd Date Kristal Calzada PA [address] [place] [address] PCP - Medical [employer]05/06/2211documented as of this encounter
[2025-04-26 12:31] LABS: Alanine Aminotransferase 34 U/L (16-63); Albumin Globulin Ratio 1.1; Albumin Level 3.8 g/dL (3.4-5.0); Alkaline Phosphatase 93 U/L (46-116); Anion Gap 12.6; Aspartate Amino Transferase 34 U/L (15-37); Blood Urea Nitrogen 16.0 mg/dL (7.0-18.0); Calcium 8.8 mg/dL (8.5-10.1); Carbon Dioxide 28.7 mmol/L (21.0-32.0); Chloride 106 mmol/L (98-107); Estimated GFR (African America >60 (>=60 mL/min/1.73m^2); Estimated GFR (Non-African Ame >60 (>=60 mL/min/1.73m^2); Globulin 3.5 g/dL; Glucose 90 mg/dL (74-106); Potassium 4.3 mmol/L (3.5-5.1); Sodium 143 mmol/L (136-145); Total Protein 7.3 g/dL (6.4-8.2)
== END 2025-04-26 11:43 | disposition home or self-care (01) ==
LOC: LAB 11:46
PROVIDERS: PCP Family Medicine; Visit Provider Internal Medicine
DX: Q61.2 Polycystic kidney, adult type (principal)
CPT/HCPCS: 36415; 80053